=== PATIENT | male | born 1940 | race Caucasian/White ===

== ENCOUNTER 2019-09-30 05:55 | Day surgery (SDC) | payer MEDICARE, BC ==
[2019-09-22 13:05] LABS: BASOPHILS % (AUTO) 0.6 % (0-1); EOSINOPHILS # (AUTO) 0.2 X10'3 (0-0.9); EOSINOPHILS % (AUTO) 3.2 % (0-6); LYMPHOCYTES # (AUTO) 1.5 X10'3 (1.1-4.8); LYMPHOCYTES % (AUTO) 21.1 % (21-51); MEAN CORPUSCULAR HEMOGLOBIN 31.1 PG (27.0-31.0); MEAN CORPUSCULAR HGB CONC 33.6 g/dL (33.0-36.5); MEAN CORPUSCULAR VOLUME 92.4 FL (78-98); MEAN PLATELET VOLUME 8.3 FL (7.4-10.4); MONOCYTES # (AUTO) 0.7 X10'3 (0-0.9); MONOCYTES % (AUTO) 9.4 % (2-12); NEUTROPHILS # (AUTO) 4.7 X10'3 (1.8-7.7); NEUTROPHILS % (AUTO) 65.7 % (42-75); PRE OP HEMATOCRIT 41.2 % (42.0-52.0); PRE OP HEMOGLOBIN 13.8 g/dL (14.0-17.9); PRE OP PLATELET COUNT 218 X10'3 (140-440); RED BLOOD COUNT 4.46 X10'6 (4.70-6.10); RED CELL DISTRIBUTION WIDTH 14.3 % (11.5-14.5)
[2019-09-22 13:16] LABS: PRE OP PROTIME 10.5 SECONDS (9.0-12.0)
[2019-09-22 13:26] LABS: ALBUMIN 4.1 G/DL (3.4-5.0); ALBUMIN/GLOBULIN RATIO 1.1 (1.1-1.5); ALKALINE PHOSPHATASE 81 IU/L (46-116); BLOOD UREA NITROGEN 27 MG/DL (7-18); CALCIUM 9.3 MG/DL (8.5-10.1); CHLORIDE 107 MMOL/L (99-107); CREATININE 1.04 MG/DL (0.60-1.10); PRE OP ALT 28 U/L (30-65); PRE OP ANION GAP 8 (8-16); PRE OP AST 14 U/L (10-37); PRE OP BILIRUB, TOTAL 0.5 MG/DL (0.0-1.0); PRE OP GLUCOSE 104 MG/DL (70-104); PRE OP POTASSIUM 4.1 MMOL/L (3.4-5.1); PRE OP SODIUM 144 MMOL/L (135-145); TOTAL CARBON DIOXIDE 28.6 MMOL/L (24-32); eGFR 69 ML/MIN
[~2019-09-30] VITALS: Ht 167.6 cm; Wt 91.2 kg
[~2019-09-30 05:55] MED LIST: AMLO5TAB16 PO; AZIL80TA PO; DILT300C53 PO; HYDR12.55 PO; MINO10TA16 PO; cefazolin/dext.iso 2gm/100 ML IV ONE; famotidine 20mg tablet PO ONE; ringers solution, lacted 1,000 ML IV SCH
[2019-09-30 06:15] VITALS: BP 150/77
[2019-09-30] MEDS ORDERED: LIDOcaine 0.5% (5mg/ml) 50ml vial ONE (07:08)
[2019-09-30] MEDS ORDERED: meperidine/PF 25mg/ml syringe IV PRN ×3 (07:35)
[2019-09-30] MEDS ORDERED: proCHLORperazine 10 MG/2 ml inj IV PRN (07:35)
[2019-09-30] MEDS ORDERED: ringers solution, lacted 1,000 ML IV SCH (07:35)
[2019-09-30] MEDS ORDERED: ondansetron/PF 4mg/2ml inj IV PRN (07:35)
[2019-09-30] MEDS ORDERED: morphine 4 MG/ML inj SYRINge IV PRN ×2 (07:35)
[2019-09-30] MEDS ORDERED: BUPIVAcaine/PF 2.5mg/ml (0.25%) 10ml vial ONE (08:04)
[2019-09-30] MEDS ORDERED: fentaNYL/PF 50MCG/1 ML 2ML syringe ONE (08:13)
[2019-09-30] MEDS ORDERED: midazolam 2 mg/2 ml injection ONE (08:13)
[2019-09-30] MEDS ORDERED: propofol 10mg/ml 20ml vial IV ONE (08:14)
[2019-09-30 08:41] VITALS: BP 125/89
--- NOTE | 2019-09-30 08:41 | NUR ---
Received from OR via MIGEL , accompanied by Anesthesiologist JENNIFER and report given by Anesthesiolgist. RIGHT WRIST DRESSING IS CDI+ CAP REFILL.. DENIES PAIN. 20G PIV IN LEFT UE RUNNING LR AT 100 Addendum: 09/30/19 at 0856 by Juanito Franco RN, RN Amended: Links added.
[2019-09-30 08:51] VITALS: BP 136/63
[2019-09-30 09:01] VITALS: BP 132/61
--- NOTE | 2019-09-30 09:11 | NUR ---
ALL DC CRITERIA HAS BEEN MET. IV OUT WITHOUT C OMPLICATIONS. DENIES PAIN. RIGHT WRIST DRESSING IS CDI. OUT VIA WHEELCHAIR TO [place] WHERE HE WAS TAKEN HOME. ALL QUESTIONS ANSWERED ON DC PAPERWORK. VSS. Addendum: 09/30/19 at 0919 by Juanito Franco RN, RN Amended: Links added.
== END 2019-09-30 09:11 | disposition home or self-care (01) ==
LOC: PAS 05:55
PROVIDERS: ATTEND Orthopaedic Surgery Hand Surgery
DX: G56.01 Carpal tunnel syndrome, right upper limb (principal); I10 Essential (primary) hypertension; G62.9 Polyneuropathy, unspecified; F43.10 Post-traumatic stress disorder, unspecified; Z79.899 Other long term (current) drug therapy; Z98.890 Other specified postprocedural states; Z72.89 Other problems related to lifestyle; Z96.641 Presence of right artificial hip joint; Z96.652 Presence of left artificial knee joint; Z79.01 Long term (current) use of anticoagulants
CPT/HCPCS: 36415; 64721; 71046; 80053; 85025; 85610; 85730; 93005; J2001; J2250; J2704; J3010; J3490; A4215; J7120

== ENCOUNTER 2019-11-11 07:41 | Day surgery (SDC) | payer MEDICARE, BC ==
[2019-11-08 15:14] LABS: BASOPHILS % (AUTO) 0.5 % (0-1); EOSINOPHILS # (AUTO) 0.2 X10'3 (0-0.9); LYMPHOCYTES # (AUTO) 1.5 X10'3 (1.1-4.8); MEAN CORPUSCULAR HEMOGLOBIN 30.8 PG (27.0-31.0); MEAN CORPUSCULAR HGB CONC 33.9 g/dL (33.0-36.5); MEAN PLATELET VOLUME 8.6 FL (7.4-10.4); MONOCYTES # (AUTO) 0.9 X10'3 (0-0.9); MONOCYTES % (AUTO) 11.2 % (2-12); NEUTROPHILS # (AUTO) 5.2 X10'3 (1.8-7.7); NEUTROPHILS % (AUTO) 66.3 % (42-75); PRE OP HEMATOCRIT 40.7 % (42.0-52.0); PRE OP HEMOGLOBIN 13.8 g/dL (14.0-17.9); PRE OP PLATELET COUNT 233 X10'3 (140-440); RED BLOOD COUNT 4.47 X10'6 (4.70-6.10); RED CELL DISTRIBUTION WIDTH 14.1 % (11.5-14.5)
[2019-11-08 15:33] LABS: ALBUMIN 3.8 G/DL (3.4-5.0); ALBUMIN/GLOBULIN RATIO 1.2 (1.1-1.5); ALKALINE PHOSPHATASE 72 IU/L (46-116); BLOOD UREA NITROGEN 22 MG/DL (7-18); BUN/CREATININE RATIO 20.6 (5.4-32.0); CALCIUM 9.4 MG/DL (8.5-10.1); CHLORIDE 104 MMOL/L (99-107); CREATININE 1.07 MG/DL (0.60-1.10); PRE OP ALT 24 U/L (30-65); PRE OP ANION GAP 8 (8-16); PRE OP AST 18 U/L (10-37); PRE OP BILIRUB, TOTAL 0.4 MG/DL (0.0-1.0); PRE OP GLUCOSE 89 MG/DL (70-104); PRE OP POTASSIUM 4.1 MMOL/L (3.4-5.1); PRE OP SODIUM 139 MMOL/L (135-145); TOTAL CARBON DIOXIDE 27.3 MMOL/L (24-32); TOTAL PROTEIN 7.1 G/DL (6.4-8.2); eGFR 67 ML/MIN
[~2019-11-11] VITALS: Ht 167.6 cm; Wt 94.0 kg
[~2019-11-11 07:41] MED LIST changes: -cefazolin/dext.iso 2gm/100 ML IV ONE; +cefazolin/dext.iso 2gm/100ml 100 ML IV ONE; +famotidine 10mg tablet PO ONE; -famotidine 20mg tablet PO ONE
[2019-11-11 08:00] VITALS: BP 143/70
[2019-11-11] MEDS ORDERED: LIDOcaine 0.5% (5mg/ml) 50ml vial ONE (08:44)
[2019-11-11] MEDS ORDERED: ringers solution, lacted 1,000 ML IV SCH (08:58)
[2019-11-11] MEDS ORDERED: meperidine/PF 25mg/ml syringe IV PRN ×3 (09:00)
[2019-11-11] MEDS ORDERED: proCHLORperazine 10 MG/2 ml inj IV PRN (09:00)
[2019-11-11] MEDS ORDERED: morphine 4 MG/ML inj SYRINge IV PRN ×2 (09:00)
[2019-11-11] MEDS ORDERED: ondansetron/PF 4mg/2ml inj IV PRN (09:00)
[2019-11-11] MEDS ORDERED: BUPIVAcaine/PF 2.5mg/ml (0.25%) 10ml vial IJ ONE (09:58)
[2019-11-11] MEDS ORDERED: midazolam 2 mg/2 ml injection ONE (10:41)
[2019-11-11] MEDS ORDERED: fentaNYL/PF 50MCG/1 ML 2ML syringe ONE (10:41)
[2019-11-11] MEDS ORDERED: BUPIVAcaine/PF 2.5mg/ml (0.25%) 10ml vial ONE (10:53)
[2019-11-11] MEDS ORDERED: propofol inj 20 ML IV ONE (10:59)
[2019-11-11 11:15] VITALS: BP 121/78
--- NOTE | 2019-11-11 11:15 | NUR ---
ADMITTED TO PACU FROM OR ACCOMPANIED BY ANESTHESIA. INTIAL PHYSICAL ASSESSMENT DONE AND RECORDED. REPORT RECEIVED FROM ANESTHESIA.
[2019-11-11 11:25] VITALS: BP 118/80
[2019-11-11 11:35] VITALS: BP 117/78
[2019-11-11 11:45] VITALS: BP 112/74
[2019-11-11 11:55] VITALS: BP 116/70
--- NOTE | 2019-11-11 12:05 | NUR ---
DISCHARGE CRITERIA MET, DISCHARGE INSTRUCTIONS GIVEN, DEMONSTRATES VERBAL UNDERSTANDING. DISCHARGED HOME IN GOOD CONDITION.
== END 2019-11-11 12:05 | disposition home or self-care (01) ==
LOC: PAS 07:41
PROVIDERS: ATTEND Orthopaedic Surgery Hand Surgery
DX: G56.02 Carpal tunnel syndrome, left upper limb (principal); M19.90 Unspecified osteoarthritis, unspecified site; F43.10 Post-traumatic stress disorder, unspecified; Z96.641 Presence of right artificial hip joint; Z96.652 Presence of left artificial knee joint; Z79.899 Other long term (current) drug therapy
CPT/HCPCS: 36415; 64721; 80053; 82948; 85025; J2001; J2250; J2704; J3010; J3490; A4215; J7120

== ENCOUNTER 2020-06-18 11:48 | Outpatient (CLI) | payer MEDICARE, BC ==
[~2020-06-18 11:48] MED LIST changes: -AMLO5TAB16 PO; -cefazolin/dext.iso 2gm/100ml 100 ML IV ONE; -famotidine 10mg tablet PO ONE; -ringers solution, lacted 1,000 ML IV SCH
== END 2020-06-18 23:59 | disposition home or self-care (01) ==
LOC: RAD 11:48
PROVIDERS: ATTEND Internal Medicine Cardiovascular Disease
DX: I49.5 Sick sinus syndrome (principal)
CPT/HCPCS: 71046

== ENCOUNTER 2020-06-27 11:32 | Day surgery (SDC) | payer MEDICARE, BC ==
[2020-06-26 12:40] LABS: BASOPHILS # (AUTO) 0.1 X10'3 (0-0.2); BASOPHILS % (AUTO) 0.6 % (0-1); EOSINOPHILS # (AUTO) 0.2 X10'3 (0-0.9); EOSINOPHILS % (AUTO) 2.1 % (0-6); HEMATOCRIT 37.9 % (42.0-52.0); HEMOGLOBIN 12.5 g/dl (14.0-17.9); LYMPHOCYTES # (AUTO) 1.3 X10'3 (1.1-4.8); LYMPHOCYTES % (AUTO) 15.3 % (21-51); MEAN CORPUSCULAR HEMOGLOBIN 29.5 PG (27.0-31.0); MEAN CORPUSCULAR HGB CONC 32.9 g/dL (33.0-36.5); MEAN CORPUSCULAR VOLUME 89.6 FL (78-98); MEAN PLATELET VOLUME 9.1 FL (7.4-10.4); MONOCYTES # (AUTO) 0.9 X10'3 (0-0.9); MONOCYTES % (AUTO) 10.1 % (2-12); NEUTROPHILS # (AUTO) 6.3 X10'3 (1.8-7.7); NEUTROPHILS % (AUTO) 71.9 % (42-75); PLATELET COUNT 202 X10'3 (140-440); RED BLOOD COUNT 4.23 X10'6 (4.70-6.10); RED CELL DISTRIBUTION WIDTH 15.1 % (11.5-14.5); WHITE BLOOD COUNT 8.7 X10'3 (4.5-11.0)
[2020-06-26 12:53] LABS: ALBUMIN 3.6 G/DL (3.4-5.0); ANION GAP 6 (8-16); BLOOD UREA NITROGEN 40 MG/DL (7-18); BUN/CREATININE RATIO 28.8 (5.4-32.0); CALCIUM 9.1 MG/DL (8.5-10.1); CHLORIDE 103 MMOL/L (99-107); CREATININE 1.39 MG/DL (0.60-1.10); GLUCOSE 115 MG/DL (70-104); MAGNESIUM 2.1 MG/DL (1.5-2.4); POTASSIUM 4.3 MMOL/L (3.5-5.1); SODIUM 137 MMOL/L (135-145); TOTAL CARBON DIOXIDE 28.3 MMOL/L (24-32); eGFR 49 ML/MIN
[2020-06-26 12:55] LABS: PARTIAL THROMBOPLASTIN TIME 29 SECONDS (22-32)
[~2020-06-27] VITALS: Ht 167.6 cm; Wt 93.8 kg
[2020-06-27] VITALS (8 sets, daily range): BP systolic 93–158; BP diastolic 44–76
[2020-06-27] MEDS ORDERED: ceFAZolin 2gm in dextrose, iso 50 ML IV ONE (11:55)
[2020-06-27] MEDS ORDERED: normal saline 1000ml 1,000 ML IV SCH ×2 (11:55→17:55)
[2020-06-27] MEDS ORDERED: AMLO2.5T2 PO (12:44)
[2020-06-27] MEDS ORDERED: fentaNYL/PF 50MCG/1 ML 2ML syringe ONE ×2 (15:32→16:19)
[2020-06-27] MEDS ORDERED: LIDOcaine 1% W/epiNEPHrine 1:100,000 20ml vial ONE (15:32)
[2020-06-27] MEDS ORDERED: midazolam 2 mg/2 ml injection ONE ×2 (15:32→16:19)
[2020-06-27] MEDS ORDERED: ceFAZolin/D5W- 1GM premix 50 ML IV ONE (15:35)
[2020-06-27] MEDS ORDERED: ceFAZolin 1000mg inj ONE (16:02)
[2020-06-27] MEDS ORDERED: proCHLORperazine 10 MG/2 ml inj ONE (16:16)
[2020-06-27] MEDS ORDERED: HYDROmorphone 1 mg/ml syringe ONE ×2 (16:23→16:40)
[2020-06-27] MEDS ORDERED: HYDROcodone/acetaminophen 10/325mg tab PO PRN (18:00)
[2020-06-27] MEDS ORDERED: HYDROcodone/acetaminophen 5mg/325mg tablet PO PRN (18:00)
[2020-06-27] MEDS ORDERED: vancomycin/NS 1 GM ADD-VANTAGE 250 ML IV ONE (18:30)
== END 2020-06-27 20:30 | disposition home or self-care (01) ==
LOC: SSTAY O 11:32
PROVIDERS: ATTEND Internal Medicine Cardiovascular Disease
DX: T82.120A Displacement of cardiac electrode, initial encounter (principal); I44.2 Atrioventricular block, complete; I10 Essential (primary) hypertension; F32.9 Major depressive disorder, single episode, unspecified; E53.8 Deficiency of other specified B group vitamins; Z79.899 Other long term (current) drug therapy; Z96.641 Presence of right artificial hip joint; Z79.01 Long term (current) use of anticoagulants; Z96.652 Presence of left artificial knee joint; Y83.8 Other surgical procedures as the cause of abnormal reaction of the patient, or of later complication, without mention of misadventure at the time of the procedure; Y92.89 Other specified places as the place of occurrence of the external cause
CPT/HCPCS: 33215; 36415; 80048; 83735; 85025; 85610; 85730; 93005; 99152; 99153; J0690; J0780; J1170; J2250; J3010; A4620

== ENCOUNTER 2021-07-29 07:50 | Day surgery (SDC) | payer MEDICARE, BC ==
[~2021-07-29] VITALS: Ht 167.6 cm; Wt 98.4 kg
[~2021-07-29 07:50] MED LIST changes: +AMLO2.5T2 PO
[2021-07-29] MEDS ORDERED: PREG150C46 PO (08:15)
[2021-07-29] MEDS ORDERED: Vitamin B12 PO (08:15)
[2021-07-29] MEDS ORDERED: DILT360C29 PO (08:15)
[2021-07-29 08:30] VITALS: BP 163/72
[2021-07-29 10:50] VITALS: BP 141/75
[2021-07-29 11:05] VITALS: BP 167/71
[2021-07-29 11:20] VITALS: BP 170/71
[2021-07-29 11:35] VITALS: BP 164/80
[2021-07-29 11:35] LABS: GLUCOSE,CSF 77 MG/DL (40-75); TOTAL PROTEIN,CSF 78 MG/DL (30-60)
[2021-07-29 12:05] VITALS: BP 170/68
[2021-07-29 12:12] LABS: APPEARANCE,CSF CLEAR; CSF RBC 441 /CU MM (0); CSF SUPERNATANT COLOR COLORLESS; CSF VOLUME 8.2 ML; CSF WBC CT 0 /CU MM (0-5); TUBE# COUNTED 4
[2021-07-30 10:43] LABS: IMMUNOGLOBULIN G, QN, SERUM 921 mg/dL (603-1613)
[2021-07-31 17:24] LABS: IMMUNOGLOBULIN G, QN CSF 3.9 mg/dL (0.0-10.3)
[2021-08-02 17:36] LABS: LYME IGG P23 AB Absent (.); LYME IGG P28 AB Absent (.); LYME IGG P30 AB Absent (.); LYME IGG P41 AB Absent (.); LYME IGG P45 AB Absent (.); LYME IGG P58 AB Absent (.); LYME IGG P66 AB Absent (.); LYME IGG P93 AB Absent (.); LYME IGG WB INTERP Negative (.); LYME IGM P23 AB Absent (.); LYME IGM P39 AB Absent (.); LYME IGM P41 AB Absent (.); LYME IGM WB INTERP Negative (.)
== END 2021-07-29 12:20 | disposition home or self-care (01) ==
LOC: SSTAY O 07:50
PROVIDERS: ATTEND Psychiatry & Neurology Neurology
DX: R20.2 Paresthesia of skin (principal); I10 Essential (primary) hypertension; F32.9 Major depressive disorder, single episode, unspecified; E53.8 Deficiency of other specified B group vitamins; G62.9 Polyneuropathy, unspecified; Z79.899 Other long term (current) drug therapy; Z96.651 Presence of right artificial knee joint
CPT/HCPCS: 62328; 77003; 82040; 82042; 82164; 82784; 82945; 83916; 84157; 86617; 88108; 89051

== ENCOUNTER 2021-12-29 13:04 | Inpatient (IN) | payer MEDICARE, BC ==
[~2021-12-29] VITALS: Ht 167.6 cm; Wt 105.6 kg
[~2021-12-29 13:04] MED LIST changes: -AMLO2.5T2 PO; -DILT300C53 PO; +DILT360C29 PO; +PREG150C46 PO; +Vitamin B12 PO
[2021-12-29] MEDS ORDERED: normal saline 1000ML IV soln IVB ONE (14:15)
[2021-12-29 14:42] LABS: BASOPHILS # (AUTO) 0.3 X10'3 (0-0.2); BASOPHILS % (AUTO) 0.9 % (0-1); EOSINOPHILS % (AUTO) 0 % (0-6); HEMATOCRIT 40.7 % (42.0-52.0); HEMOGLOBIN 13.3 g/dl (14.0-17.9); LYMPHOCYTES # (AUTO) 0.7 X10'3 (1.1-4.8); LYMPHOCYTES % (AUTO) 2.5 % (21-51); MEAN CORPUSCULAR HEMOGLOBIN 29.8 PG (27.0-31.0); MEAN CORPUSCULAR HGB CONC 32.8 g/dL (33.0-36.5); MEAN CORPUSCULAR VOLUME 90.9 FL (78-98); MEAN PLATELET VOLUME 9.5 FL (7.4-10.4); MONOCYTES # (AUTO) 2.9 X10'3 (0-0.9); MONOCYTES % (AUTO) 10.6 % (2-12); NEUTROPHILS # (AUTO) 23.7 X10'3 (1.8-7.7); PLATELET COUNT 228 X10'3 (140-440); RED BLOOD COUNT 4.48 X10'6 (4.70-6.10); RED CELL DISTRIBUTION WIDTH 15.1 % (11.5-14.5)
[2021-12-29 14:50] LABS: WHITE BLOOD COUNT 27.6 X10'3 (4.5-11.0)
[2021-12-29 14:54] LABS: APTT 32 SECONDS (22-32)
[2021-12-29 14:57] LABS: ALANINE AMINOTRANSFERASE 40 U/L (12-78); ALBUMIN 2.8 G/DL (3.4-5.0); ALBUMIN/GLOBULIN RATIO 0.6 (1.1-1.5); ALKALINE PHOSPHATASE 111 IU/L (46-116); ANION GAP 7 (8-16); ASPARTATE AMINO TRANSFERASE 73 U/L (10-37); BILIRUBIN,TOTAL 0.5 MG/DL (0.1-1.0); BLOOD UREA NITROGEN 103 MG/DL (7-18); BUN/CREATININE RATIO 20.9 (5.4-32.0); CALCIUM 8.9 MG/DL (8.5-10.1); CHLORIDE 100 MMOL/L (99-107); CREATININE 4.92 MG/DL (0.60-1.10); GLUCOSE 177 MG/DL (70-104); POTASSIUM 4.7 MMOL/L (3.5-5.1); SODIUM 135 MMOL/L (135-145); TOTAL CARBON DIOXIDE 28.3 MMOL/L (24-32); TOTAL PROTEIN 7.5 G/DL (6.4-8.2); eGFR 11 ML/MIN
[2021-12-29 15:03] LABS: ANISOCYTOSIS FEW; PLATELET ESTIMATE NORMAL; TOTAL CELLS COUNTED 100; TOXIC GRANULATION 1+
[2021-12-29 15:05] LABS: BURR CELLS 2+
[2021-12-29 15:06] LABS: LIPASE 358 U/L (73-393)
[2021-12-29] MEDS: normal saline 1000ml 1,000 ML IV SCH (17:00)
[2021-12-29] MEDS ORDERED: azithromycin/NS 500mg/250ml 250 ML IV ONE (17:00)
[2021-12-29] MEDS ORDERED: HYDROmorphone/PF 0.2 MG/ML SYRINGE IV PRN (17:00)
[2021-12-29] MEDS ORDERED: PERFLUTREN PROTEIN-A MICROSPHR (Optison) 0.22 MG/ML 3ML VIAL IV ONE (17:00)
[2021-12-29] MEDS ORDERED: potassium Cl 20 mEq SR tablet PO PRN ×2 (17:00)
[2021-12-29] MEDS ORDERED: magnesium 4gm in 100ml NS 100 ML IV PRN (17:00)
[2021-12-29] MEDS ORDERED: PERFLUTREN PROTEIN-A MICROSPHR (Optison) 0.22 MG/ML 3ML VIAL IV PRN (17:00)
[2021-12-29] MEDS ORDERED: HYDROcodone/acetaminophen 10/325mg tab PO PRN (17:00)
[2021-12-29] MEDS ORDERED: HYDROmorphone inj. 0.5 MG/0.5 ML DISP.SYRIN IV PRN (17:00)
[2021-12-29] MEDS ORDERED: acetaminophen 325mg tablet PO PRN ×2 (17:00)
[2021-12-29] MEDS: CefTRIAXone/D5W-Rocephin 1gm 50 ML IV SCH (17:00)
[2021-12-29] MEDS ORDERED: HYDROcodone/acetaminophen 5mg/325mg tablet PO PRN (17:00)
[2021-12-29] MEDS ORDERED: magnesium Cl slow-release 64mg tablet PO PRN (17:00)
[2021-12-29] MEDS ORDERED: potassium CL 10mEq/100ml bag 100 ML IV PRN (17:00)
[2021-12-29] MEDS ORDERED: mag hydrox/Alum hydrox/simeth 30ml oral suspension PO PRN (17:00)
[2021-12-29] MEDS ORDERED: magnesium hydroxide 30ml (MOM) UD suspension PO PRN (17:00)
[2021-12-29] MEDS ORDERED: bisacodyl 10mg suppository rectal RC PRN (17:00)
[2021-12-29] MEDS ORDERED: ondansetron 4mg rapidly disintigrating tab PO PRN (17:00)
[2021-12-29] MEDS ORDERED: ondansetron/PF 4mg/2ml inj IV PRN (17:00)
[2021-12-29] MEDS ORDERED: magnesium 2GM in 50ml NS 50 ML IV PRN (17:00)
[2021-12-29] MEDS ORDERED: LIDOcaine 2% 10ml TOPICAL JELLY (Urojet) TP ONE (17:30)
[2021-12-29 17:43] LABS: MAGNESIUM 2.5 MG/DL (1.5-2.4)
[2021-12-29] MEDS: K and/or MAG REPLACEMENT MC SCH (20:00)
[2021-12-29] MEDS: docusate sod 100mg capsule PO SCH (20:00)
[2021-12-29 20:26] LABS: CLARITY,URINE SLIGHTLY CLOUDY (Clear); COLOR,URINE YELLOW (Yellow); GLUCOSE, URINE NEGATIVE (Neg); KETONES,URINE TRACE mg/dl (Neg); LEUKOCYTE ESTERASE ,URINE NEGATIVE (Neg); NITRITES, URINE NEGATIVE (Neg); OCCULT BLOOD,URINE MODERATE (Neg); PROTEIN,URINE 30 mg/dl (Neg); UROBILINOGEN,URINE 0.2 E.U/dL (0.2-1.0)
[2021-12-29 20:33] LABS: UA COLLECTION TYPE FOLEY CATH
[2021-12-29 20:34] LABS: AMORPHOUS URATES 1+; BACTERIA,URINE FEW /HPF (Neg); RBC,URINE 0-2 /HPF (0-2); SQUAMOUS EPITHELIAL CELL,UR FEW /LPF (FEW); WBC,URINE NONE SEEN /HPF (0-4)
[2021-12-29 23:45] VITALS: BP 110/86
[2021-12-30 02:00] VITALS: BP 113/73
[2021-12-30] MEDS: normal saline 1000ml 1,000 ML IV SCH ×2 (03:17→13:33)
[2021-12-30 06:00] VITALS: BP 95/46
[2021-12-30 06:01] LABS: BASOPHILS % (AUTO) 0.2 % (0-1); EOSINOPHILS # (AUTO) 0.1 X10'3 (0-0.9); EOSINOPHILS % (AUTO) 0.2 % (0-6); HEMATOCRIT 38.8 % (42.0-52.0); HEMOGLOBIN 12.5 g/dl (14.0-17.9); LYMPHOCYTES # (AUTO) 0.7 X10'3 (1.1-4.8); LYMPHOCYTES % (AUTO) 2.8 % (21-51); MEAN CORPUSCULAR HEMOGLOBIN 30.1 PG (27.0-31.0); MEAN CORPUSCULAR HGB CONC 32.1 g/dL (33.0-36.5); MEAN CORPUSCULAR VOLUME 93.8 FL (78-98); MONOCYTES # (AUTO) 2.3 X10'3 (0-0.9); MONOCYTES % (AUTO) 9.3 % (2-12); NEUTROPHILS # (AUTO) 21.3 X10'3 (1.8-7.7); NEUTROPHILS % (AUTO) 87.5 % (42-75); PLATELET COUNT 229 X10'3 (140-440); RED BLOOD COUNT 4.14 X10'6 (4.70-6.10); WHITE BLOOD COUNT 24.4 X10'3 (4.5-11.0)
[2021-12-30 06:19] LABS: ALANINE AMINOTRANSFERASE 46 U/L (12-78); ALBUMIN 2.4 G/DL (3.4-5.0); ALBUMIN/GLOBULIN RATIO 0.7 (1.1-1.5); ALKALINE PHOSPHATASE 107 IU/L (46-116); ANION GAP 11 (8-16); ASPARTATE AMINO TRANSFERASE 92 U/L (10-37); BILIRUBIN,TOTAL 0.3 MG/DL (0.1-1.0); BLOOD UREA NITROGEN 110 MG/DL (7-18); BUN/CREATININE RATIO 20.5 (5.4-32.0); CALCIUM 8.3 MG/DL (8.5-10.1); CHLORIDE 102 MMOL/L (99-107); CHOL/HDL RATIO 4.3 (0.00-4.99); CHOLESTEROL 112 MG/DL (0-200); CREATININE 5.36 MG/DL (0.60-1.10); GLUCOSE 114 MG/DL (70-104); HDL CHOLESTEROL 26 MG/DL (35-60); LDL CHOLESTEROL 52 MG/DL (50-100); MAGNESIUM 2.6 MG/DL (1.5-2.4); POTASSIUM 5.1 MMOL/L (3.5-5.1); SODIUM 138 MMOL/L (135-145); TOTAL CARBON DIOXIDE 25.1 MMOL/L (24-32); TOTAL PROTEIN 5.7 G/DL (6.4-8.2); TRIGLYCERIDES 90 MG/DL (20-135); eGFR 10 ML/MIN
[2021-12-30] MEDS ORDERED: azithromycin/NS 500mg/250ml 250 ML IV SCH (08:00)
[2021-12-30] MEDS: K and/or MAG REPLACEMENT MC SCH (08:00)
[2021-12-30] MEDS: docusate sod 100mg capsule PO SCH ×2 (08:00→20:48)
[2021-12-30] MEDS: nystatin 15 GM powder TP SCH ×2 (08:31→20:48)
--- NOTE | 2021-12-30 09:12 | NUR ---
Noted current ht in EMR 129in. D/w RN getting updated ht. Addendum: 12/30/21 at [address] Yevgeniy Peña RD Amended: Links added.
[2021-12-30 09:25] LABS: ANISOCYTOSIS FEW; BURR CELLS 2+; PLATELET ESTIMATE NORMAL; TOTAL CELLS COUNTED 100; TOXIC GRANULATION 1+
[2021-12-30 09:26] LABS: LARGE PLATELETS FEW
[2021-12-30] MEDS: CefTRIAXone/D5W-Rocephin 1gm 50 ML IV SCH (09:39)
[2021-12-30 11:00] VITALS: BP 113/45
[2021-12-30 15:00] VITALS: BP 115/52
[2021-12-30] MEDS ORDERED: VANCOMYCIN 1GM/200ML IVPB 200 ML IV PRN (16:25)
[2021-12-30] MEDS: sodium chloride 0.45% 1,000 ML IV SCH (16:37)
[2021-12-30] MEDS ORDERED: vancomycin 1,750 MG in NS 350ml IV soln IV ONE (17:20)
[2021-12-30 18:00] VITALS: BP 126/50
--- NOTE | 2021-12-30 18:15 | NUR ---
Problems reprioritized. Patient report given, questions answered & plan of care reviewed with Clare SANCHEZ.
[2021-12-30 18:29] LABS: ALBUMIN 2.4 G/DL (3.4-5.0); ANION GAP 10 (8-16); BLOOD UREA NITROGEN 122 MG/DL (7-18); BUN/CREATININE RATIO 21.6 (5.4-32.0); CHLORIDE 104 MMOL/L (99-107); CREATININE 5.65 MG/DL (0.60-1.10); GLUCOSE 149 MG/DL (70-104); POTASSIUM 5.8 MMOL/L (3.5-5.1); SODIUM 139 MMOL/L (135-145); TOTAL CARBON DIOXIDE 25.2 MMOL/L (24-32); eGFR 10 ML/MIN
[2021-12-30] MEDS ORDERED: albuterol 2.5 MG/3 ML nebule CONTNEB STA (18:53)
[2021-12-30] MEDS: lactobacillus rhamnosus 10,000 MMU CELLS/CAPSULE PO SCH (20:48)
[2021-12-30] MEDS: SODIUM ZIRCONIUM CYCLOSILICATE 10 GM POWD.PACK PO SCH ×2 (20:48→20:49)
[2021-12-30 22:00] VITALS: BP 117/48
--- NOTE | 2021-12-30 22:00 | NUR ---
PM and Elkins care done. Pt had a bowel movement; dressing to sacral changed. Pt denied pain or any other discomfort.
[2021-12-31] VITALS (8 sets, daily range): BP systolic 92–118; BP diastolic 38–52
[2021-12-31] MEDS: piperacillin/tazo 3.375gm/50ml 50 ML IV SCH ×3 (00:24→19:55)
[2021-12-31] MEDS: sodium chloride 0.45% 1,000 ML IV SCH ×4 (00:34→23:00)
[2021-12-31] MEDS: VANCOMYCIN LEVEL IV SCH (03:42)
[2021-12-31 04:46] LABS: ALANINE AMINOTRANSFERASE 49 U/L (12-78); ALBUMIN 2.2 G/DL (3.4-5.0); ALBUMIN/GLOBULIN RATIO 0.7 (1.1-1.5); ALKALINE PHOSPHATASE 104 IU/L (46-116); ANION GAP 13 (8-16); ASPARTATE AMINO TRANSFERASE 70 U/L (10-37); BILIRUBIN,TOTAL 0.3 MG/DL (0.1-1.0); BLOOD UREA NITROGEN 131 MG/DL (7-18); BUN/CREATININE RATIO 22.8 (5.4-32.0); CALCIUM 7.8 MG/DL (8.5-10.1); CHLORIDE 102 MMOL/L (99-107); CREATININE 5.75 MG/DL (0.60-1.10); GLUCOSE 147 MG/DL (70-104); MAGNESIUM 2.2 MG/DL (1.5-2.4); POTASSIUM 5.5 MMOL/L (3.5-5.1); SODIUM 138 MMOL/L (135-145); TOTAL CARBON DIOXIDE 22.7 MMOL/L (24-32); TOTAL PROTEIN 5.3 G/DL (6.4-8.2); VANCOMYCIN,RANDOM 19.2 UG/ML; eGFR 10 ML/MIN
[2021-12-31 05:34] LABS: BASOPHILS % (AUTO) 0.1 % (0-1); EOSINOPHILS % (AUTO) 0.1 % (0-6); HEMATOCRIT 35.6 % (42.0-52.0); HEMOGLOBIN 11.4 g/dl (14.0-17.9); LYMPHOCYTES # (AUTO) 0.5 X10'3 (1.1-4.8); LYMPHOCYTES % (AUTO) 2.7 % (21-51); MEAN CORPUSCULAR HEMOGLOBIN 29.7 PG (27.0-31.0); MEAN CORPUSCULAR HGB CONC 31.9 g/dL (33.0-36.5); MEAN CORPUSCULAR VOLUME 93.2 FL (78-98); MEAN PLATELET VOLUME 9.8 FL (7.4-10.4); MONOCYTES # (AUTO) 1.6 X10'3 (0-0.9); MONOCYTES % (AUTO) 8.2 % (2-12); NEUTROPHILS # (AUTO) 17.4 X10'3 (1.8-7.7); NEUTROPHILS % (AUTO) 88.9 % (42-75); PLATELET COUNT 198 X10'3 (140-440); RED BLOOD COUNT 3.82 X10'6 (4.70-6.10); RED CELL DISTRIBUTION WIDTH 15.8 % (11.5-14.5); WHITE BLOOD COUNT 19.5 X10'3 (4.5-11.0)
[2021-12-31] MEDS: docusate sod 100mg capsule PO SCH ×2 (08:00→19:56)
[2021-12-31] MEDS: lactobacillus rhamnosus 10,000 MMU CELLS/CAPSULE PO SCH ×2 (08:19→19:56)
[2021-12-31] MEDS: nystatin 15 GM powder TP SCH ×2 (08:23→19:56)
[2021-12-31] MEDS: SODIUM ZIRCONIUM CYCLOSILICATE 10 GM POWD.PACK PO SCH ×2 (08:26→13:09)
--- NOTE | 2021-12-31 11:01 | NUR ---
Initial: Pt admitted w/ Sepsis, SHANE w/ CKD, and encephalopathy per EMR. Pt currently on Heart Healthy diet w/ low PO intake, avg 36% x 3 meals though is documented to be A&O x 1 and needs feeder. 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 Pt could benefit from Devyn smoothies BID at this time to assist w/ wound healing. Will monitor further PO trends before additional ONS. Per Distributing Clerk, pt may need HD for worsening SHANE, has baseline CKD III. LBM 12/30 receiving routine colace, though pt may refuse it. Will continue to monitor. Recs: 1. Liberalize to Regular diet given no significant cardiac hx 2. Devyn Smoothies BIDBD; pending MD verification 3. Monitor need for additional ONS 4. Bowel care per rx 5. Weekly wts Addendum: 12/31/21 at [address]iy Peña RD Amended: Links added.
--- NOTE | 2021-12-31 16:42 | NUR ---
PAGER ID: [phone] MESSAGE: [id number] [place]- Wound culture swab sent to katarina. Elizabeth JENKINS
[2021-12-31 17:08] LABS: ALBUMIN 2.2 G/DL (3.4-5.0); ANION GAP 9 (8-16); BLOOD UREA NITROGEN 148 MG/DL (7-18); BUN/CREATININE RATIO 24.4 (5.4-32.0); CALCIUM 7.9 MG/DL (8.5-10.1); CHLORIDE 103 MMOL/L (99-107); CREATININE 6.06 MG/DL (0.60-1.10); GLUCOSE 165 MG/DL (70-104); PHOSPHORUS 8.9 MG/DL (2.3-4.5); SODIUM 136 MMOL/L (135-145); TOTAL CARBON DIOXIDE 24.2 MMOL/L (24-32); eGFR 9 ML/MIN
[2021-12-31 17:14] LABS: POTASSIUM 6.2 MMOL/L (3.5-5.1)
--- NOTE | 2021-12-31 17:19 | NUR ---
PAGER ID: [phone] MESSAGE: [id number] 6.2. Elizabeth 5554
[2021-12-31] MEDS ORDERED: sodium polystyrene sulfonate 15gm/60ml oral suspension PO ONE (17:25)
[2021-12-31] MEDS ORDERED: sodium bicarbonate (8.4%) inj. 50 MEQ in dextrose 5%-water 1,000 ML IV SCH (17:25)
[2021-12-31] MEDS ORDERED: calcium gluconate inj. 1 GM in normal saline 100ml IV soln 100 ML IV ONE (17:25)
[2021-12-31] MEDS ORDERED: albuterol 2.5 MG/3 ML nebule CONTNEB STA (17:25)
[2021-12-31] MEDS: JUVEN Smoothie Arginine/Glut./Ca2+Bmb (Juven 19.3pkt) 240ml cup PO SCH (17:30)
--- NOTE | 2021-12-31 17:45 | NUR ---
Informed Dr. Lira of BP 92/38 HR 80s. Stat Lasix order changed from 80mg to 20mg.
[2021-12-31] MEDS ORDERED: sodium bicarbonate (8.4%) 1 mEq/ml syringe IV ONE (17:50)
[2021-12-31] MEDS: CALCIUM GLUC 1gm/50ml NACL,iso 100 ML IV ONE ×3 (17:55→19:31)
[2021-12-31] MEDS: furosemide 40mg/4ml inj IV STA ×2 (17:57→18:12)
[2021-12-31] MEDS ORDERED: furosemide 20 MG/2 ML vial IV STA (18:09)
--- NOTE | 2021-12-31 18:10 | NUR ---
Problems reprioritized. Patient report given, questions answered & plan of care reviewed with Clare SANCHEZ.
[2021-12-31] MEDS ORDERED: sodium bicarbonate (8.4%) inj. 1 MEQ/ML ML IV ONE (19:15)
--- NOTE | 2021-12-31 22:31 | NUR ---
Patient in room PCU 3026 to be transferred to ICU 2042 B. I have received report from DANIEL Sparks and had the opportunity to ask questions.
[2021-12-31 22:33] LABS: BASOPHILS % (AUTO) 0.2 % (0-1); EOSINOPHILS % (AUTO) 0.2 % (0-6); HEMOGLOBIN 10.9 g/dl (14.0-17.9); LYMPHOCYTES # (AUTO) 0.5 X10'3 (1.1-4.8); LYMPHOCYTES % (AUTO) 2.7 % (21-51); MEAN CORPUSCULAR HEMOGLOBIN 29.9 PG (27.0-31.0); MEAN CORPUSCULAR VOLUME 93.5 FL (78-98); MEAN PLATELET VOLUME 9.4 FL (7.4-10.4); MONOCYTES # (AUTO) 1.4 X10'3 (0-0.9); MONOCYTES % (AUTO) 7.3 % (2-12); NEUTROPHILS # (AUTO) 16.7 X10'3 (1.8-7.7); NEUTROPHILS % (AUTO) 89.6 % (42-75); PLATELET COUNT 202 X10'3 (140-440); RED BLOOD COUNT 3.63 X10'6 (4.70-6.10); RED CELL DISTRIBUTION WIDTH 16.1 % (11.5-14.5); WHITE BLOOD COUNT 18.6 X10'3 (4.5-11.0)
[2021-12-31 23:00] LABS: ALANINE AMINOTRANSFERASE 45 U/L (12-78); ALBUMIN 2.1 G/DL (3.4-5.0); ALBUMIN/GLOBULIN RATIO 0.7 (1.1-1.5); ALKALINE PHOSPHATASE 98 IU/L (46-116); ANION GAP 10 (8-16); ASPARTATE AMINO TRANSFERASE 40 U/L (10-37); BILIRUBIN,TOTAL 0.3 MG/DL (0.1-1.0); BLOOD UREA NITROGEN 147 MG/DL (7-18); BUN/CREATININE RATIO 23.9 (5.4-32.0); CHLORIDE 102 MMOL/L (99-107); CREATININE 6.15 MG/DL (0.60-1.10); GLUCOSE 139 MG/DL (70-104); POTASSIUM 5.6 MMOL/L (3.5-5.1); SODIUM 136 MMOL/L (135-145); TOTAL CARBON DIOXIDE 23.9 MMOL/L (24-32); eGFR 9 ML/MIN
[2021-12-31 23:12] LABS: ANISOCYTOSIS 1+; BANDS% (MANUAL) 17.3 % (0-10); LYMPHOCYTES % (MANUAL) 2.7 % (21-51); METAMYLEOCYTES% (MANUAL) 0.7 % (0-0); MONOCYTES % (MANUAL) 3.3 % (2-12); MYELOCYTES % (MANUAL) 0.7 % (0-0); NEUTROPHILS % (MANUAL) 75.3 % (42-75); PLATELET ESTIMATE NORMAL; TOTAL CELLS COUNTED 150
[2021-12-31 23:13] LABS: BURR CELLS FEW; POLYCHROMASIA FEW
[2021-12-31 23:16] LABS: ABG BASE EXCESS -6.9 mmol/L (-2.0-2.0); ABG HCO3 23.4 mmol/L (22.0-26.0); ABG OXYGEN SATURATION 95.7 % (94-97); ABG PCO2 (T) 72.5 mmHg (35.0-48.0); ABG PO2 (T) 81.4 mmHg (75.0-100.0); ALLEN'S TEST POSITIVE; FCOHb 0.7 % (0.0-3.9); FMetHb 0.5 % (0.0-1.5); FO2Hb 94.6 % (94-97); PATIENT TEMPERATURE 36.7; TOTAL HEMOGLOBIN 11.8 G/dl (14.0-18.0)
--- NOTE | 2021-12-31 23:33 | NUR ---
Pt arrived on unit at 2240 via bed with RN and tech in attendance. Patient moved over to ICU bed via slider board. Patient placed bus monitor showing sinus rhythm to paced rhythm at a rate in the 70's. Oxygen via nasal cannula at 3 lpm with Oxygen saturation 93%. Respiratory rate 20. Saliva suctioned from mouth. IV access 22 ga to right chest, 18 ga to left A/C. 1/2 NS infusing at rate of 100 ml/hr. Zosyn infusing per MD order. Patient is responsive to name, A&Ox1. Patient will not open his eyes or follow commands. With every touch patient states "ouch!" Patient is resistant to care and physically becomes rigid with patient care activities. Complete bed bath, skin assessment: large open wound to sacrum and left buttock, purple/ black discoloration of skin. New hydrophyllic dressing applied. Patient with multiple small circular open wounds to posterior of lower extremities, excoriation noted to groin area. Patient had a bowel movement, large amount of soft dark brown stool. Marshall catheter in place with 33ml of dark brown urine present, marshall cath care was completed. SCD's placed on patient. STAT chest x-ray, ABG and labs completed per MD orders. RT back with ABG results, Per Dr. Caputo patient started on BiPAP.
[2022-01-01] VITALS (25 sets, daily range): BP systolic 60–193; BP diastolic 26–81
[2022-01-01] MEDS ORDERED: sodium bicarbonate (8.4%) 1 mEq/ml syringe IV ONE
[2022-01-01] MEDS ORDERED: albuterol 2.5 MG/3 ML nebule NEB ONE
[2022-01-01 00:21] LABS: ABG BASE EXCESS -7.9 mmol/L (-2.0-2.0); ABG OXYGEN SATURATION 96.6 % (94-97); ABG PO2 (T) 89.3 mmHg (75.0-100.0); ALLEN'S TEST POSITIVE; FCOHb 0.6 % (0.0-3.9); FMetHb 0.5 % (0.0-1.5); FO2Hb 95.5 % (94-97); PATIENT TEMPERATURE 36.7; RESPIRATORY RATE 16 b/min; TOTAL HEMOGLOBIN 11.7 G/dl (14.0-18.0)
--- NOTE | 2022-01-01 01:08 | NUR ---
Phone call with Dr. Conteh re: repeat ABG after being on BiPap, RT increased settings to IPAP 20 EPAP 8 with a noticeable decrease in MAP to the 50's. Per Dr. Conteh place patient back to IPAP18 EPAP 5. She would like to avoid placing patient on any pressors at this time. Clarified the hyperkalcemia orders: MD wants Sodium Bicarb, Albuterol as ordered, Lokelma if he is able to wake up and swallow safely, if not okay to wait on the Lokelma for the morning. No additional orders at this time.
[2022-01-01] MEDS: zinc oxide ointment 30gm tube TP SCH ×3 (02:35→20:00)
[2022-01-01] MEDS: VANCOMYCIN LEVEL IV SCH (03:00)
[2022-01-01] MEDS ORDERED: NORepinephrine 8mg/ 250ml NS 250 ML IV ONE (03:57)
--- NOTE | 2022-01-01 04:00 | NUR ---
rounds with Dr. Hinton, Patients MAP decreased to the 40's Levophed started. Patient obtunded with response to deep painful stimuli. BiPap still in place. Dr. Hinton would like charger operator helper to call Dr. Caputo, as Dr. Caputo is aware of this patients condition.
[2022-01-01 04:15] LABS: ABG BASE EXCESS -4.2 mmol/L (-2.0-2.0); ABG HCO3 25.2 mmol/L (22.0-26.0); ABG OXYGEN SATURATION 95.8 % (94-97); ABG PCO2 (T) 70.2 mmHg (35.0-48.0); ABG PO2 (T) 78.2 mmHg (75.0-100.0); ALLEN'S TEST POSITIVE; FCOHb 0.9 % (0.0-3.9); FMetHb 0.1 % (0.0-1.5); FO2Hb 94.8 % (94-97); PATIENT TEMPERATURE 36.7; RESPIRATORY RATE 22 b/min; TOTAL HEMOGLOBIN 10.8 G/dl (14.0-18.0)
[2022-01-01 04:17] LABS: BASOPHILS # (AUTO) 0.1 X10'3 (0-0.2); BASOPHILS % (AUTO) 0.4 % (0-1); EOSINOPHILS % (AUTO) 0.2 % (0-6); HEMATOCRIT 30.9 % (42.0-52.0); LYMPHOCYTES # (AUTO) 0.7 X10'3 (1.1-4.8); LYMPHOCYTES % (AUTO) 4.4 % (21-51); MEAN CORPUSCULAR HEMOGLOBIN 29.8 PG (27.0-31.0); MEAN CORPUSCULAR HGB CONC 32.3 g/dL (33.0-36.5); MEAN CORPUSCULAR VOLUME 92.5 FL (78-98); MEAN PLATELET VOLUME 9.6 FL (7.4-10.4); MONOCYTES # (AUTO) 1.4 X10'3 (0-0.9); MONOCYTES % (AUTO) 8.6 % (2-12); NEUTROPHILS # (AUTO) 13.6 X10'3 (1.8-7.7); NEUTROPHILS % (AUTO) 86.4 % (42-75); PLATELET COUNT 188 X10'3 (140-440); RED BLOOD COUNT 3.34 X10'6 (4.70-6.10); RED CELL DISTRIBUTION WIDTH 15.7 % (11.5-14.5); WHITE BLOOD COUNT 15.7 X10'3 (4.5-11.0)
[2022-01-01 04:38] LABS: ALANINE AMINOTRANSFERASE 40 U/L (12-78); ALBUMIN 1.9 G/DL (3.4-5.0); ALBUMIN/GLOBULIN RATIO 0.6 (1.1-1.5); ALKALINE PHOSPHATASE 84 IU/L (46-116); ANION GAP 10 (8-16); ASPARTATE AMINO TRANSFERASE 32 U/L (10-37); BILIRUBIN,TOTAL 0.3 MG/DL (0.1-1.0); CALCIUM 7.8 MG/DL (8.5-10.1); CHLORIDE 104 MMOL/L (99-107); CREATININE 6.28 MG/DL (0.60-1.10); GLUCOSE 128 MG/DL (70-104); MAGNESIUM 2.6 MG/DL (1.5-2.4); PHOSPHORUS 8.3 MG/DL (2.3-4.5); POTASSIUM 5.7 MMOL/L (3.5-5.1); SODIUM 138 MMOL/L (135-145); TOTAL PROTEIN 4.9 G/DL (6.4-8.2); VANCOMYCIN,RANDOM 15.5 UG/ML; eGFR 9 ML/MIN
[2022-01-01 04:45] LABS: BLOOD UREA NITROGEN 156 MG/DL (7-18); BUN/CREATININE RATIO 24.8 (5.4-32.0)
[2022-01-01] MEDS ORDERED: NORepinephrine inj. 8 MG in dextrose 5%-water 242 ML IV SCH (04:45)
[2022-01-01] MEDS: NORepinephrine 8mg/ 250ml NS 250 ML IV SCH ×2 (04:52→16:38)
--- NOTE | 2022-01-01 05:00 | NUR ---
Patient to CT for head, abdomen, pelvis CT. RT, RN and FLOOR CLERK with patient to CT. Patient placed on transport monitor. Prior to taking patient for CT patient had a very large bowel movement of dark brown, foul smelling stool. Sample sent to lab per MD order. Patient to CT, tolerated well without incident. Back to Room at 0555 Dr. Caputo at bedside.
[2022-01-01 05:26] LABS: PLATELET ESTIMATE NORMAL; TOTAL CELLS COUNTED 100
--- NOTE | 2022-01-01 06:20 | NUR ---
Problems reprioritized. Patient report given, questions answered & plan of care reviewed with DANIEL Edmondson.
--- NOTE | 2022-01-01 06:47 | NUR ---
[facility] [phone]
[2022-01-01] MEDS ORDERED: magnesium 4gm in 100ml NS 100 ML IV PRN (07:30)
[2022-01-01] MEDS ORDERED: calcium chloride inj. 1,000 MG in normal saline 100ml IV soln 100 ML IV PRN (07:30)
[2022-01-01] MEDS ORDERED: sodium phosphate inj. 30 MMOL in normal saline 250ml IV soln 250 ML IV PRN (07:30)
[2022-01-01] MEDS ORDERED: heparin 10,000 units/1 ML INJ IV ONE (07:30)
[2022-01-01] MEDS: bicarb dialysis sol 2K+/3 Ca2+ 5,000 ML HE SCH ×5 (07:30→18:31)
[2022-01-01] MEDS ORDERED: heparin 10,000 units/1 ML INJ IV PRN (07:30)
[2022-01-01] MEDS ORDERED: zinc oxide ointment 30gm tube TP SCH (08:00)
[2022-01-01] MEDS: piperacillin/tazo 3.375gm/50ml 50 ML IV SCH ×2 (08:00→20:48)
[2022-01-01] MEDS: lactobacillus rhamnosus 10,000 MMU CELLS/CAPSULE PO SCH ×2 (08:00→20:00)
[2022-01-01] MEDS: nystatin 15 GM powder TP SCH ×2 (08:00→21:49)
[2022-01-01] MEDS ORDERED: heparin, porcine 5000 units/ml vial SQ SCH (08:00)
[2022-01-01] MEDS: docusate sod 100mg capsule PO SCH ×2 (08:00→20:00)
[2022-01-01] MEDS: SODIUM ZIRCONIUM CYCLOSILICATE 10 GM POWD.PACK PO SCH ×2 (08:00→13:00)
[2022-01-01] MEDS: heparin 25,000 UNIT/250ml bag 250 ML IV SCH (08:25)
[2022-01-01 08:43] LABS: BASOPHILS % (AUTO) 0.2 % (0-1); EOSINOPHILS % (AUTO) 0.2 % (0-6); HEMATOCRIT 33.3 % (42.0-52.0); HEMOGLOBIN 10.9 g/dl (14.0-17.9); LYMPHOCYTES # (AUTO) 0.7 X10'3 (1.1-4.8); MEAN CORPUSCULAR HGB CONC 32.8 g/dL (33.0-36.5); MEAN CORPUSCULAR VOLUME 91.7 FL (78-98); MEAN PLATELET VOLUME 9.3 FL (7.4-10.4); MONOCYTES # (AUTO) 1.4 X10'3 (0-0.9); MONOCYTES % (AUTO) 8.1 % (2-12); NEUTROPHILS % (AUTO) 87.5 % (42-75); PLATELET COUNT 207 X10'3 (140-440); RED BLOOD COUNT 3.63 X10'6 (4.70-6.10); RED CELL DISTRIBUTION WIDTH 15.8 % (11.5-14.5); WHITE BLOOD COUNT 17.2 X10'3 (4.5-11.0)
[2022-01-01 08:51] LABS: APTT 30 SECONDS (22-32)
[2022-01-01 09:06] LABS: ALBUMIN 2.2 G/DL (3.4-5.0); ANION GAP 11 (8-16); BLOOD UREA NITROGEN 148 MG/DL (7-18); BUN/CREATININE RATIO 24.3 (5.4-32.0); CALCIUM 7.9 MG/DL (8.5-10.1); CHLORIDE 103 MMOL/L (99-107); CREATININE 6.08 MG/DL (0.60-1.10); GLUCOSE 136 MG/DL (70-104); PHOSPHORUS 7.6 MG/DL (2.3-4.5); POTASSIUM 5.4 MMOL/L (3.5-5.1); SODIUM 139 MMOL/L (135-145); TOTAL CARBON DIOXIDE 24.7 MMOL/L (24-32); eGFR 9 ML/MIN
[2022-01-01 09:31] LABS: BASOPHILS # (AUTO) 0.1 X10'3 (0-0.2); BASOPHILS % (AUTO) 0.4 % (0-1); EOSINOPHILS % (AUTO) 0.1 % (0-6); HEMATOCRIT 33.9 % (42.0-52.0); LYMPHOCYTES # (AUTO) 0.6 X10'3 (1.1-4.8); LYMPHOCYTES % (AUTO) 3.9 % (21-51); MEAN CORPUSCULAR HEMOGLOBIN 29.6 PG (27.0-31.0); MEAN CORPUSCULAR HGB CONC 32.4 g/dL (33.0-36.5); MEAN CORPUSCULAR VOLUME 91.5 FL (78-98); MEAN PLATELET VOLUME 9.3 FL (7.4-10.4); MONOCYTES # (AUTO) 0.7 X10'3 (0-0.9); MONOCYTES % (AUTO) 4.3 % (2-12); NEUTROPHILS # (AUTO) 14.5 X10'3 (1.8-7.7); NEUTROPHILS % (AUTO) 91.3 % (42-75); PLATELET COUNT 205 X10'3 (140-440); RED BLOOD COUNT 3.71 X10'6 (4.70-6.10); RED CELL DISTRIBUTION WIDTH 15.8 % (11.5-14.5); WHITE BLOOD COUNT 15.9 X10'3 (4.5-11.0)
[2022-01-01 10:08] LABS: ALBUMIN 2.2 G/DL (3.4-5.0); ANION GAP 13 (8-16); BLOOD UREA NITROGEN 150 MG/DL (7-18); BUN/CREATININE RATIO 26.8 (5.4-32.0); CALCIUM 7.6 MG/DL (8.5-10.1); CHLORIDE 103 MMOL/L (99-107); CREATININE 5.59 MG/DL (0.60-1.10); GLUCOSE 141 MG/DL (70-104); MAGNESIUM 2.4 MG/DL (1.5-2.4); PHOSPHORUS 7.1 MG/DL (2.3-4.5); POTASSIUM 5.1 MMOL/L (3.5-5.1); SODIUM 140 MMOL/L (135-145); TOTAL CARBON DIOXIDE 24.4 MMOL/L (24-32); eGFR 10 ML/MIN
[2022-01-01 10:48] LABS: BASOPHILS % (AUTO) 0.2 % (0-1); EOSINOPHILS % (AUTO) 0.1 % (0-6); HEMATOCRIT 33.4 % (42.0-52.0); LYMPHOCYTES # (AUTO) 0.5 X10'3 (1.1-4.8); LYMPHOCYTES % (AUTO) 3.2 % (21-51); MEAN CORPUSCULAR HEMOGLOBIN 29.9 PG (27.0-31.0); MEAN CORPUSCULAR HGB CONC 32.9 g/dL (33.0-36.5); MEAN PLATELET VOLUME 9.5 FL (7.4-10.4); MONOCYTES # (AUTO) 0.8 X10'3 (0-0.9); MONOCYTES % (AUTO) 4.6 % (2-12); NEUTROPHILS # (AUTO) 15.1 X10'3 (1.8-7.7); NEUTROPHILS % (AUTO) 91.9 % (42-75); PLATELET COUNT 216 X10'3 (140-440); RED BLOOD COUNT 3.67 X10'6 (4.70-6.10); RED CELL DISTRIBUTION WIDTH 15.6 % (11.5-14.5); WHITE BLOOD COUNT 16.4 X10'3 (4.5-11.0)
--- NOTE | 2022-01-01 11:04 | NUR ---
01/01/22 0940: Duplicate consult request received after patient was transferred to ICU. Spoke with the primary nurse to clarify skin condition/orders and offer assistance in performing wound care. The primary nurse said that she was able to review his skin conditions and orders for a clear understanding of needs, the consult was placed by the mold shifter and that she was planning on performing wound care a little later. She was told to contact wound care if she found anything new or needed help. Addendum: 01/01/22 at 1126 by Lorena Slaughter RN Amended: Links added. Addendum: 01/01/22 at 1416 by Daisy Grant RN Reviewed by Daisy Grant RN
[2022-01-01 11:12] LABS: ANION GAP 11 (8-16); BLOOD UREA NITROGEN 142 MG/DL (7-18); BUN/CREATININE RATIO 26.7 (5.4-32.0); CALCIUM 7.6 MG/DL (8.5-10.1); CHLORIDE 104 MMOL/L (99-107); CREATININE 5.32 MG/DL (0.60-1.10); GLUCOSE 139 MG/DL (70-104); MAGNESIUM 2.2 MG/DL (1.5-2.4); PHOSPHORUS 6.6 MG/DL (2.3-4.5); SODIUM 140 MMOL/L (135-145); TOTAL CARBON DIOXIDE 24.6 MMOL/L (24-32); eGFR 10 ML/MIN
[2022-01-01 11:24] LABS: BASOPHILS # (AUTO) 0.1 X10'3 (0-0.2); BASOPHILS % (AUTO) 0.3 % (0-1); EOSINOPHILS % (AUTO) 0.1 % (0-6); HEMOGLOBIN 11.3 g/dl (14.0-17.9); LYMPHOCYTES # (AUTO) 0.7 X10'3 (1.1-4.8); MEAN CORPUSCULAR HEMOGLOBIN 29.4 PG (27.0-31.0); MEAN CORPUSCULAR HGB CONC 32.1 g/dL (33.0-36.5); MEAN CORPUSCULAR VOLUME 91.6 FL (78-98); MONOCYTES # (AUTO) 1.5 X10'3 (0-0.9); MONOCYTES % (AUTO) 6.9 % (2-12); NEUTROPHILS # (AUTO) 19.2 X10'3 (1.8-7.7); NEUTROPHILS % (AUTO) 89.7 % (42-75); PLATELET COUNT 226 X10'3 (140-440); RED BLOOD COUNT 3.82 X10'6 (4.70-6.10); RED CELL DISTRIBUTION WIDTH 15.7 % (11.5-14.5); WHITE BLOOD COUNT 21.4 X10'3 (4.5-11.0)
[2022-01-01 11:26] LABS: OCCULT BLOOD STOOL POSITIVE (Neg)
[2022-01-01 11:38] LABS: ALBUMIN 2.2 G/DL (3.4-5.0); ANION GAP 9 (8-16); BLOOD UREA NITROGEN 137 MG/DL (7-18); BUN/CREATININE RATIO 27.5 (5.4-32.0); CALCIUM 7.6 MG/DL (8.5-10.1); CHLORIDE 104 MMOL/L (99-107); CREATININE 4.98 MG/DL (0.60-1.10); GLUCOSE 143 MG/DL (70-104); MAGNESIUM 2.4 MG/DL (1.5-2.4); PHOSPHORUS 6.5 MG/DL (2.3-4.5); POTASSIUM 4.9 MMOL/L (3.5-5.1); SODIUM 138 MMOL/L (135-145); TOTAL CARBON DIOXIDE 25.5 MMOL/L (24-32); eGFR 11 ML/MIN
--- NOTE | 2022-01-01 12:12 | NUR ---
Matias Consult: Matias 9 per EMR w/ L thigh unstageable PI, IAD, and bilateral ischium SDTI's per WOC note. Pt now transferred to critical care BIPAP dependent requiring CVVH and remain NPO at this time per manager of health. Pt initial meals intake poor on prior heart healthy diet and IF to remain NPO would benefit from NG feeds to optimize nutrition status w/ CVVH and sepsis DX per EMR. TF recs below in case nutrition support. Recs: 1. IF PO diet to resume liberalize to Regular diet given age and poor PO trends w/ Devyn Smoothies BIDBD pending MD verification of ONS in EMR 2. IF TF; Vital High Protein at 85ml/hr goal would provide 2040ml volume/day, 2040 kcals, 1714ml water, and 178g protein. 3. IF TF; additional water flush per manager of health on CVVH 4. IF TF; PALB Q /; daily wts 5. routine bowel care 6. daily wts Addendum: 01/01/22 at [address] Amended: Links added.
[2022-01-01 12:37] LABS: ABG BASE EXCESS -5.5 mmol/L (-2.0-2.0); ABG HCO3 22.9 mmol/L (22.0-26.0); ABG OXYGEN SATURATION 89.5 % (94-97); ABG PCO2 (T) 56.2 mmHg (35.0-48.0); ABG PO2 (T) 55.2 mmHg (75.0-100.0); ALLEN'S TEST POSITIVE; FCOHb 0.6 % (0.0-3.9); FMetHb 0.4 % (0.0-1.5); FO2Hb 88.6 % (94-97); PATIENT TEMPERATURE 36.4; RESPIRATORY RATE 22 b/min; TOTAL HEMOGLOBIN 12.4 G/dl (14.0-18.0)
[2022-01-01 17:08] LABS: BASOPHILS % (AUTO) 0.4 % (0-1); EOSINOPHILS % (AUTO) 0.2 % (0-6); HEMATOCRIT 33.4 % (42.0-52.0); HEMOGLOBIN 10.9 g/dl (14.0-17.9); LYMPHOCYTES # (AUTO) 0.5 X10'3 (1.1-4.8); LYMPHOCYTES % (AUTO) 4.3 % (21-51); MEAN CORPUSCULAR HEMOGLOBIN 29.8 PG (27.0-31.0); MEAN CORPUSCULAR HGB CONC 32.6 g/dL (33.0-36.5); MEAN CORPUSCULAR VOLUME 91.4 FL (78-98); MONOCYTES # (AUTO) 0.4 X10'3 (0-0.9); MONOCYTES % (AUTO) 3.3 % (2-12); NEUTROPHILS # (AUTO) 10.2 X10'3 (1.8-7.7); NEUTROPHILS % (AUTO) 91.8 % (42-75); PLATELET COUNT 209 X10'3 (140-440); RED BLOOD COUNT 3.65 X10'6 (4.70-6.10); RED CELL DISTRIBUTION WIDTH 15.4 % (11.5-14.5); WHITE BLOOD COUNT 11.1 X10'3 (4.5-11.0)
[2022-01-01 17:57] LABS: ANION GAP 6 (8-16); BLOOD UREA NITROGEN 107 MG/DL (7-18); BUN/CREATININE RATIO 29.7 (5.4-32.0); CHLORIDE 106 MMOL/L (99-107); GLUCOSE 122 MG/DL (70-104); MAGNESIUM 2.2 MG/DL (1.5-2.4); PHOSPHORUS 5.2 MG/DL (2.3-4.5); POTASSIUM 4.3 MMOL/L (3.5-5.1); SODIUM 141 MMOL/L (135-145); TOTAL CARBON DIOXIDE 29.1 MMOL/L (24-32); eGFR 16 ML/MIN
[2022-01-01] MEDS ORDERED: dexmedetomidine inj. 400 MCG in dextrose 5%-water 100 ML IV SCH (20:10)
--- NOTE | 2022-01-01 20:35 | NUR ---
agitated and restless , trying to get up not staying still , CVVH keep alarming , called to MD orders received.
[2022-01-01] MEDS: dexmedetomidine/D5W 100mL 100 ML IV SCH (20:47)
[2022-01-01 21:37] LABS: APTT 44 SECONDS (22-32)
--- NOTE | 2022-01-01 21:40 | NUR ---
CVVH clotted , almond blancher notified , had large diarrhea at this time .
[2022-01-02] VITALS (24 sets, daily range): BP systolic 86–171; BP diastolic 41–88
[2022-01-02 01:00] LABS: BASOPHILS % (AUTO) 0.1 % (0-1); EOSINOPHILS % (AUTO) 0 % (0-6); HEMATOCRIT 31.4 % (42.0-52.0); HEMOGLOBIN 10.4 g/dl (14.0-17.9); LYMPHOCYTES # (AUTO) 0.3 X10'3 (1.1-4.8); LYMPHOCYTES % (AUTO) 1.6 % (21-51); MEAN CORPUSCULAR HGB CONC 33.1 g/dL (33.0-36.5); MEAN CORPUSCULAR VOLUME 90.7 FL (78-98); MEAN PLATELET VOLUME 9.2 FL (7.4-10.4); MONOCYTES % (AUTO) 4.5 % (2-12); NEUTROPHILS # (AUTO) 20.4 X10'3 (1.8-7.7); NEUTROPHILS % (AUTO) 93.8 % (42-75); PLATELET COUNT 208 X10'3 (140-440); RED BLOOD COUNT 3.46 X10'6 (4.70-6.10); RED CELL DISTRIBUTION WIDTH 15.3 % (11.5-14.5); WHITE BLOOD COUNT 21.7 X10'3 (4.5-11.0)
[2022-01-02 01:18] LABS: IONIZED CALCIUM SERUM 1.26 MMOL/L (1.03-1.32)
[2022-01-02 01:25] LABS: TOTAL CELLS COUNTED 100
[2022-01-02 01:26] LABS: PLATELET ESTIMATE NORMAL
[2022-01-02 01:27] LABS: ALANINE AMINOTRANSFERASE 45 U/L (12-78); ALBUMIN 1.9 G/DL (3.4-5.0); ALBUMIN/GLOBULIN RATIO 0.6 (1.1-1.5); ALKALINE PHOSPHATASE 102 IU/L (46-116); ANION GAP 11 (8-16); ASPARTATE AMINO TRANSFERASE 40 U/L (10-37); BILIRUBIN,TOTAL 0.3 MG/DL (0.1-1.0); BLOOD UREA NITROGEN 88 MG/DL (7-18); BUN/CREATININE RATIO 30.1 (5.4-32.0); CALCIUM 7.6 MG/DL (8.5-10.1); CHLORIDE 104 MMOL/L (99-107); CREATININE 2.92 MG/DL (0.60-1.10); GLUCOSE 134 MG/DL (70-104); POTASSIUM 3.9 MMOL/L (3.5-5.1); SODIUM 141 MMOL/L (135-145); TOTAL CARBON DIOXIDE 26.1 MMOL/L (24-32); VANCOMYCIN,RANDOM 7.8 UG/ML; eGFR 21 ML/MIN
--- NOTE | 2022-01-02 01:28 | NUR ---
CVVH restart at 0045
[2022-01-02] MEDS: bicarb dialysis sol 2K+/3 Ca2+ 5,000 ML HE SCH ×6 (01:56→15:54)
[2022-01-02] MEDS: potassium Cl 20mEq/100mL bag 100 ML IV PRN ×2 (02:00→03:19)
[2022-01-02] MEDS: dexmedetomidine/D5W 100mL 100 ML IV SCH ×4 (02:18→20:04)
[2022-01-02] MEDS: VANCOMYCIN LEVEL IV SCH (03:00)
[2022-01-02 03:43] LABS: APTT 52 SECONDS (22-32)
[2022-01-02] MEDS: heparin 25,000 UNIT/250ml bag 250 ML IV SCH ×2 (03:59→23:55)
[2022-01-02] MEDS: NORepinephrine 8mg/ 250ml NS 250 ML IV SCH ×2 (04:36→11:55)
--- NOTE | 2022-01-02 06:15 | NUR ---
Problems reprioritized. Patient report given, questions answered & plan of care reviewed with SERG SANCHEZ.
[2022-01-02 06:30] LABS: ANION GAP 8 (8-16); BLOOD UREA NITROGEN 66 MG/DL (7-18); BUN/CREATININE RATIO 30.1 (5.4-32.0); CHLORIDE 104 MMOL/L (99-107); CREATININE 2.19 MG/DL (0.60-1.10); GLUCOSE 137 MG/DL (70-104); MAGNESIUM 1.9 MG/DL (1.5-2.4); PHOSPHORUS 4.4 MG/DL (2.3-4.5); POTASSIUM 4.2 MMOL/L (3.5-5.1); SODIUM 140 MMOL/L (135-145); TOTAL CARBON DIOXIDE 27.8 MMOL/L (24-32); eGFR 29 ML/MIN
[2022-01-02 06:33] LABS: BASOPHILS # (AUTO) 0.1 X10'3 (0-0.2); BASOPHILS % (AUTO) 0.2 % (0-1); EOSINOPHILS % (AUTO) 0.1 % (0-6); HEMATOCRIT 34.7 % (42.0-52.0); HEMOGLOBIN 11.2 g/dl (14.0-17.9); LYMPHOCYTES # (AUTO) 0.5 X10'3 (1.1-4.8); LYMPHOCYTES % (AUTO) 1.6 % (21-51); MEAN CORPUSCULAR HEMOGLOBIN 29.6 PG (27.0-31.0); MEAN CORPUSCULAR HGB CONC 32.1 g/dL (33.0-36.5); MONOCYTES # (AUTO) 1.1 X10'3 (0-0.9); MONOCYTES % (AUTO) 3.4 % (2-12); NEUTROPHILS # (AUTO) 29.4 X10'3 (1.8-7.7); NEUTROPHILS % (AUTO) 94.7 % (42-75); PLATELET COUNT 211 X10'3 (140-440); RED BLOOD COUNT 3.77 X10'6 (4.70-6.10); RED CELL DISTRIBUTION WIDTH 15.6 % (11.5-14.5)
[2022-01-02] MEDS: piperacillin/tazo 3.375gm/50ml 50 ML IV SCH ×2 (07:36→19:42)
[2022-01-02] MEDS ORDERED: vancomycin/NS 1 GM ADD-VANTAGE 250 ML X 1 DOSE IV ONE (08:00)
[2022-01-02] MEDS: nystatin 15 GM powder TP SCH ×2 (08:00→20:00)
[2022-01-02] MEDS ORDERED: VANCOMYCIN 1GM/200ML IVPB 200 ML IV ONE (08:00)
[2022-01-02] MEDS: zinc oxide ointment 30gm tube TP SCH ×2 (08:00→20:00)
[2022-01-02] MEDS: docusate sod 100mg capsule PO SCH ×2 (08:00→19:47)
[2022-01-02] MEDS: lactobacillus rhamnosus 10,000 MMU CELLS/CAPSULE PO SCH ×2 (08:00→19:47)
--- NOTE | 2022-01-02 08:34 | NUR ---
pt's rectal temp is 34.6. reno george applied
--- NOTE | 2022-01-02 09:10 | NUR ---
pt had sudden desat to 74% fio2 increased to 60% for short period. now titrating it down
[2022-01-02 09:41] LABS: ABG HCO3 28.4 mmol/L (22.0-26.0); ABG OXYGEN SATURATION 98.4 % (94-97); ABG PCO2 (T) 72.7 mmHg (35.0-48.0); ABG PO2 (T) 117.4 mmHg (75.0-100.0); ALLEN'S TEST POSITIVE; FCOHb 0.8 % (0.0-3.9); FMetHb 0.4 % (0.0-1.5); FO2Hb 97.2 % (94-97); PATIENT TEMPERATURE 34.3; RESPIRATORY RATE 22 b/min
[2022-01-02 09:44] LABS: APTT 66 SECONDS (22-32)
[2022-01-02 10:22] LABS: CLARITY,URINE CLOUDY (Clear); COLOR,URINE YELLOW (Yellow); GLUCOSE, URINE NEGATIVE (Neg); KETONES,URINE NEGATIVE (Neg); LEUKOCYTE ESTERASE ,URINE TRACE (Neg); NITRITES, URINE NEGATIVE (Neg); OCCULT BLOOD,URINE LARGE (Neg); PH,URINE 5.5 (4.8-8.0); PROTEIN,URINE TRACE mg/dl (Neg); UROBILINOGEN,URINE 0.2 E.U/dL (0.2-1.0)
[2022-01-02 10:23] LABS: UA COLLECTION TYPE NON-SPECIFIED
[2022-01-02 10:32] LABS: RBC,URINE 20-50 /HPF (0-2); WBC,URINE 0-4 /HPF (0-4)
[2022-01-02 10:33] LABS: BACTERIA,URINE FEW /HPF (Neg); MUCUS STRANDS FEW /LPF (Neg); SQUAMOUS EPITHELIAL CELL,UR FEW /LPF (FEW); TRANSITIONAL EPI CELLS,URINE FEW /HPF; WBC CLUMPS,URINE FEW /HPF (NEGATIVE)
[2022-01-02 10:34] LABS: AMORPHOUS URATES 3+; COARSE GRANULAR CAST 0-3 /LPF (NEGATIVE); HYALINE CASTS 0-3 /LPF (NEGATIVE)
[2022-01-02 11:19] LABS: ABG BASE EXCESS -1.4 mmol/L (-2.0-2.0); ABG HCO3 28.9 mmol/L (22.0-26.0); ABG OXYGEN SATURATION 97.1 % (94-97); ABG PCO2 (T) 71.4 mmHg (35.0-48.0); ABG PO2 (T) 85.2 mmHg (75.0-100.0); ALLEN'S TEST POSITIVE; FCOHb 0.7 % (0.0-3.9); FMetHb 0.4 % (0.0-1.5); PATIENT TEMPERATURE 34.4; RESPIRATORY RATE 26 b/min; TOTAL HEMOGLOBIN 12.3 G/dl (14.0-18.0)
[2022-01-02] MEDS: pantoprazole 40MG/D5 100ML BAG 100 ML IV SCH ×3 (11:33→19:18)
--- NOTE | 2022-01-02 12:08 | NUR ---
TF Consult: Pt DX sepsis per fishing rod mechanic remains BIPAP dependent w/ corpak to be placed today for nutrition per fishing rod mechanic at rounds. TF recs below given pt needs. LBM 2/2 per EMR. Will monitor for TF tolerance and adjustment needs. Recs: 1. Continuous TF per MD using Vital High Protein at 85ml/hr goal would provide 2040ml volume/day, 2040 kcals, 1714ml water, and 178g protein. 2. additional water flush per fishing rod mechanic on CVVH 3. PALB Q /; daily wts 4. consider Phos binder w/ TF per fishing rod mechanic discretion; Phos WNL this AM 5. routine bowel care Addendum: 01/02/22 at [address] Amended: Links added.
[2022-01-02 12:27] LABS: BASOPHILS % (AUTO) 0 % (0-1); EOSINOPHILS % (AUTO) 0 % (0-6); HEMATOCRIT 35.6 % (42.0-52.0); HEMOGLOBIN 11.6 g/dl (14.0-17.9); LYMPHOCYTES # (AUTO) 0.5 X10'3 (1.1-4.8); LYMPHOCYTES % (AUTO) 1.8 % (21-51); MEAN CORPUSCULAR HEMOGLOBIN 29.9 PG (27.0-31.0); MEAN CORPUSCULAR HGB CONC 32.6 g/dL (33.0-36.5); MEAN CORPUSCULAR VOLUME 91.6 FL (78-98); MEAN PLATELET VOLUME 8.8 FL (7.4-10.4); MONOCYTES % (AUTO) 3.7 % (2-12); NEUTROPHILS # (AUTO) 25.4 X10'3 (1.8-7.7); NEUTROPHILS % (AUTO) 94.5 % (42-75); PLATELET COUNT 208 X10'3 (140-440); RED BLOOD COUNT 3.89 X10'6 (4.70-6.10); RED CELL DISTRIBUTION WIDTH 15.5 % (11.5-14.5)
[2022-01-02 12:50] LABS: WHITE BLOOD COUNT 26.8 X10'3 (4.5-11.0)
[2022-01-02 13:07] LABS: ALBUMIN 1.9 G/DL (3.4-5.0); ANION GAP 5 (8-16); BLOOD UREA NITROGEN 55 MG/DL (7-18); BUN/CREATININE RATIO 32.5 (5.4-32.0); CHLORIDE 104 MMOL/L (99-107); CREATININE 1.69 MG/DL (0.60-1.10); GLUCOSE 145 MG/DL (70-104); MAGNESIUM 1.9 MG/DL (1.5-2.4); PHOSPHORUS 3.8 MG/DL (2.3-4.5); POTASSIUM 3.9 MMOL/L (3.5-5.1); SODIUM 140 MMOL/L (135-145); TOTAL CARBON DIOXIDE 30.8 MMOL/L (24-32); eGFR 39 ML/MIN
[2022-01-02 13:08] LABS: IONIZED CALCIUM SERUM 1.27 MMOL/L (1.03-1.32)
[2022-01-02 13:20] LABS: PREALBUMIN 7.7 MG/DL (19-36)
[2022-01-02] MEDS: hydrocortisone sod succ/PF 100mg/2ml inj. IV SCH ×2 (14:00→19:39)
[2022-01-02 15:18] LABS: APTT 50 SECONDS (22-32)
[2022-01-02] MEDS: Duosol 4K/3 Ca (w/calcium) 5,000 ML HE SCH ×5 (15:29→23:58)
[2022-01-02 15:37] LABS: ABG BASE EXCESS -2.7 mmol/L (-2.0-2.0); ABG HCO3 24.8 mmol/L (22.0-26.0); ABG OXYGEN SATURATION 97.2 % (94-97); ABG PCO2 (T) 49.4 mmHg (35.0-48.0); ALLEN'S TEST POSITIVE; FCOHb 0.8 % (0.0-3.9); FMetHb 0.3 % (0.0-1.5); FO2Hb 96.1 % (94-97); PATIENT TEMPERATURE 34.8; RESPIRATORY RATE 26 b/min; TOTAL HEMOGLOBIN 12.6 G/dl (14.0-18.0)
[2022-01-02] MEDS: JUVEN Smoothie Arginine/Glut./Ca2+Bmb (Juven 19.3pkt) 240ml cup PO SCH (17:30)
--- NOTE | 2022-01-02 17:36 | NUR ---
corpak placed earlier.it is in the stomach. recheck of kub at 1700 showed still in the stomach. results reviewed with discharge coordinator and tube feed started at 30cc/hr
[2022-01-02 18:08] LABS: BASOPHILS % (AUTO) 0 % (0-1); EOSINOPHILS % (AUTO) 0 % (0-6); HEMATOCRIT 34.7 % (42.0-52.0); HEMOGLOBIN 11.2 g/dl (14.0-17.9); LYMPHOCYTES # (AUTO) 0.4 X10'3 (1.1-4.8); LYMPHOCYTES % (AUTO) 1.6 % (21-51); MEAN CORPUSCULAR HEMOGLOBIN 29.1 PG (27.0-31.0); MEAN CORPUSCULAR HGB CONC 32.2 g/dL (33.0-36.5); MEAN CORPUSCULAR VOLUME 90.3 FL (78-98); MEAN PLATELET VOLUME 8.5 FL (7.4-10.4); MONOCYTES # (AUTO) 0.8 X10'3 (0-0.9); MONOCYTES % (AUTO) 3.1 % (2-12); NEUTROPHILS # (AUTO) 24.8 X10'3 (1.8-7.7); NEUTROPHILS % (AUTO) 95.3 % (42-75); PLATELET COUNT 218 X10'3 (140-440); RED BLOOD COUNT 3.84 X10'6 (4.70-6.10); RED CELL DISTRIBUTION WIDTH 15.4 % (11.5-14.5)
[2022-01-02 18:31] LABS: ALBUMIN 1.8 G/DL (3.4-5.0); ANION GAP 11 (8-16); BLOOD UREA NITROGEN 40 MG/DL (7-18); BUN/CREATININE RATIO 28.6 (5.4-32.0); CHLORIDE 105 MMOL/L (99-107); GLUCOSE 143 MG/DL (70-104); MAGNESIUM 1.8 MG/DL (1.5-2.4); PHOSPHORUS 3.4 MG/DL (2.3-4.5); POTASSIUM 3.9 MMOL/L (3.5-5.1); SODIUM 142 MMOL/L (135-145); TOTAL CARBON DIOXIDE 26.2 MMOL/L (24-32); eGFR 49 ML/MIN
[2022-01-03] VITALS (24 sets, daily range): BP systolic 87–145; BP diastolic 41–95
[2022-01-03] MEDS: Duosol 4K/3 Ca (w/calcium) 5,000 ML HE SCH ×7 (00:03→10:32)
[2022-01-03] MEDS: pantoprazole 40MG/NS 100ML BAG 100 ML IV SCH ×6 (00:35→20:18)
[2022-01-03] MEDS: dexmedetomidine/D5W 100mL 100 ML IV SCH ×5 (00:36→20:19)
[2022-01-03] MEDS ORDERED: metoclopramide 5 mg/ml inj IV ONE (00:45)
[2022-01-03] MEDS: acetaminophen 1,000mg/100ml IV 100 ML IV SCH ×4 (01:13→20:00)
[2022-01-03] MEDS: hydrocortisone sod succ/PF 100mg/2ml inj. IV SCH ×3 (02:01→14:47)
[2022-01-03 02:42] LABS: ABG BASE EXCESS -2.3 mmol/L (-2.0-2.0); ABG HCO3 22.6 mmol/L (22.0-26.0); ABG OXYGEN SATURATION 94.6 % (94-97); ABG PO2 (T) 66.3 mmHg (75.0-100.0); ALLEN'S TEST POSITIVE; FCOHb 0.8 % (0.0-3.9); FMetHb 0.3 % (0.0-1.5); FO2Hb 93.6 % (94-97); PATIENT TEMPERATURE 36.6; RESPIRATORY RATE 26 b/min; TOTAL HEMOGLOBIN 12.2 G/dl (14.0-18.0)
[2022-01-03] MEDS: VANCOMYCIN LEVEL IV SCH (03:00)
[2022-01-03 03:18] LABS: BASOPHILS % (AUTO) 0 % (0-1); EOSINOPHILS % (AUTO) 0 % (0-6); HEMATOCRIT 33.1 % (42.0-52.0); HEMOGLOBIN 10.6 g/dl (14.0-17.9); LYMPHOCYTES # (AUTO) 0.5 X10'3 (1.1-4.8); LYMPHOCYTES % (AUTO) 1.5 % (21-51); MEAN CORPUSCULAR HEMOGLOBIN 29.1 PG (27.0-31.0); MEAN CORPUSCULAR HGB CONC 32.1 g/dL (33.0-36.5); MEAN CORPUSCULAR VOLUME 90.9 FL (78-98); MEAN PLATELET VOLUME 9.4 FL (7.4-10.4); MONOCYTES # (AUTO) 0.8 X10'3 (0-0.9); MONOCYTES % (AUTO) 2.7 % (2-12); NEUTROPHILS # (AUTO) 29.4 X10'3 (1.8-7.7); NEUTROPHILS % (AUTO) 95.8 % (42-75); PLATELET COUNT 211 X10'3 (140-440); RED BLOOD COUNT 3.64 X10'6 (4.70-6.10); RED CELL DISTRIBUTION WIDTH 15.6 % (11.5-14.5)
[2022-01-03 03:38] LABS: ALANINE AMINOTRANSFERASE 36 U/L (12-78); ALBUMIN 1.7 G/DL (3.4-5.0); ALBUMIN/GLOBULIN RATIO 0.6 (1.1-1.5); ALKALINE PHOSPHATASE 89 IU/L (46-116); ANION GAP 8 (8-16); ASPARTATE AMINO TRANSFERASE 27 U/L (10-37); BILIRUBIN,TOTAL 0.4 MG/DL (0.1-1.0); BLOOD UREA NITROGEN 37 MG/DL (7-18); BUN/CREATININE RATIO 28.2 (5.4-32.0); CALCIUM 7.7 MG/DL (8.5-10.1); CHLORIDE 105 MMOL/L (99-107); CREATININE 1.31 MG/DL (0.60-1.10); GLUCOSE 159 MG/DL (70-104); POTASSIUM 3.8 MMOL/L (3.5-5.1); SODIUM 140 MMOL/L (135-145); TOTAL CARBON DIOXIDE 27.4 MMOL/L (24-32); TOTAL PROTEIN 4.7 G/DL (6.4-8.2); eGFR 53 ML/MIN
[2022-01-03 03:39] LABS: MAGNESIUM 1.9 MG/DL (1.5-2.4); PHOSPHORUS 3.2 MG/DL (2.3-4.5); VANCOMYCIN,RANDOM 8.5 UG/ML
[2022-01-03 03:40] LABS: WHITE BLOOD COUNT 30.7 X10'3 (4.5-11.0)
[2022-01-03 04:21] LABS: IONIZED CALCIUM SERUM 1.26 MMOL/L (1.03-1.32)
[2022-01-03 05:08] LABS: TOTAL CELLS COUNTED 100
[2022-01-03 05:13] LABS: PLATELET ESTIMATE NORMAL
[2022-01-03] MEDS: piperacillin/tazo 3.375gm/50ml 50 ML IV SCH ×2 (07:19→20:24)
[2022-01-03] MEDS: zinc oxide ointment 30gm tube TP SCH ×2 (07:19→20:00)
[2022-01-03] MEDS: nystatin 15 GM powder TP SCH ×2 (07:19→20:00)
[2022-01-03] MEDS: lactobacillus rhamnosus 10,000 MMU CELLS/CAPSULE PO SCH ×2 (07:19→20:00)
[2022-01-03] MEDS: docusate sodium 100mg/10ml UD cup PO SCH ×2 (07:19→20:00)
[2022-01-03] MEDS: JUVEN Smoothie Arginine/Glut./Ca2+Bmb (Juven 19.3pkt) 240ml cup PO SCH (07:30)
[2022-01-03 08:14] LABS: BASOPHILS % (AUTO) 0.1 % (0-1); EOSINOPHILS % (AUTO) 0.1 % (0-6); HEMATOCRIT 31.3 % (42.0-52.0); HEMOGLOBIN 10.3 g/dl (14.0-17.9); LYMPHOCYTES # (AUTO) 0.5 X10'3 (1.1-4.8); LYMPHOCYTES % (AUTO) 1.6 % (21-51); MEAN CORPUSCULAR HEMOGLOBIN 29.6 PG (27.0-31.0); MEAN CORPUSCULAR HGB CONC 32.9 g/dL (33.0-36.5); MEAN CORPUSCULAR VOLUME 89.9 FL (78-98); MEAN PLATELET VOLUME 8.8 FL (7.4-10.4); MONOCYTES % (AUTO) 3.1 % (2-12); NEUTROPHILS # (AUTO) 30.7 X10'3 (1.8-7.7); NEUTROPHILS % (AUTO) 95.1 % (42-75); PLATELET COUNT 189 X10'3 (140-440); RED BLOOD COUNT 3.48 X10'6 (4.70-6.10); RED CELL DISTRIBUTION WIDTH 14.9 % (11.5-14.5)
[2022-01-03 08:20] LABS: WHITE BLOOD COUNT 32.2 X10'3 (4.5-11.0)
[2022-01-03 08:33] LABS: ALBUMIN 1.6 G/DL (3.4-5.0); ANION GAP 8 (8-16); BLOOD UREA NITROGEN 33 MG/DL (7-18); CHLORIDE 106 MMOL/L (99-107); CREATININE 1.22 MG/DL (0.60-1.10); GLUCOSE 206 MG/DL (70-104); MAGNESIUM 1.8 MG/DL (1.5-2.4); PHOSPHORUS 2.7 MG/DL (2.3-4.5); POTASSIUM 3.7 MMOL/L (3.5-5.1); SODIUM 141 MMOL/L (135-145); TOTAL CARBON DIOXIDE 27.4 MMOL/L (24-32); eGFR 57 ML/MIN
[2022-01-03] MEDS ORDERED: dextrose ORAL solution 15 GM/59 ML bottle PO PRN ×2 (10:40)
[2022-01-03] MEDS ORDERED: dextrose 50%-water 50ml dispensing syringe IV PRN ×2 (10:40)
[2022-01-03] MEDS ORDERED: glucagon, human recombinant 1mg kit SUBCUT PRN (10:40)
[2022-01-03] MEDS ORDERED: MESSAGE TO PHARMACY PO ONE (10:40)
[2022-01-03] MEDS: HYDROmorphone 1 mg/ml syringe IV PRN ×3 (11:11→20:53)
--- NOTE | 2022-01-03 13:18 | NUR ---
CVVH filter being changed by fur matcher
[2022-01-03 14:32] LABS: BASOPHILS # (AUTO) 0.1 X10'3 (0-0.2); BASOPHILS % (AUTO) 0.4 % (0-1); EOSINOPHILS % (AUTO) 0 % (0-6); HEMATOCRIT 31.4 % (42.0-52.0); HEMOGLOBIN 10.2 g/dl (14.0-17.9); LYMPHOCYTES # (AUTO) 0.4 X10'3 (1.1-4.8); LYMPHOCYTES % (AUTO) 1.2 % (21-51); MEAN CORPUSCULAR HEMOGLOBIN 29.4 PG (27.0-31.0); MEAN CORPUSCULAR HGB CONC 32.6 g/dL (33.0-36.5); MEAN PLATELET VOLUME 9.2 FL (7.4-10.4); MONOCYTES # (AUTO) 1.1 X10'3 (0-0.9); NEUTROPHILS # (AUTO) 35.7 X10'3 (1.8-7.7); NEUTROPHILS % (AUTO) 95.4 % (42-75); PLATELET COUNT 180 X10'3 (140-440); RED BLOOD COUNT 3.49 X10'6 (4.70-6.10); RED CELL DISTRIBUTION WIDTH 15.4 % (11.5-14.5)
--- NOTE | 2022-01-03 14:38 | NUR ---
[facility] running
[2022-01-03 14:40] LABS: ALBUMIN 1.5 G/DL (3.4-5.0); ANION GAP 7 (8-16); BLOOD UREA NITROGEN 34 MG/DL (7-18); BUN/CREATININE RATIO 31.2 (5.4-32.0); CHLORIDE 107 MMOL/L (99-107); CREATININE 1.09 MG/DL (0.60-1.10); GLUCOSE 202 MG/DL (70-104); MAGNESIUM 1.8 MG/DL (1.5-2.4); PHOSPHORUS 2.4 MG/DL (2.3-4.5); POTASSIUM 3.6 MMOL/L (3.5-5.1); SODIUM 142 MMOL/L (135-145); TOTAL CARBON DIOXIDE 28.1 MMOL/L (24-32); WHITE BLOOD COUNT 37.4 X10'3 (4.5-11.0); eGFR 65 ML/MIN
--- NOTE | 2022-01-03 15:43 | NUR ---
Dr. Caputo at bedside, updated on WBC, CXR and overall pt condition. order received to increase fluid removal to 50-100cc/hr. to stop CVVH if pt becomes hypotensive, tachycardic.
[2022-01-03 15:59] LABS: HEMOGLOBIN A1C 6.3 % (4.5-6.2)
[2022-01-03] MEDS: NORepinephrine 8mg/ 250ml NS 250 ML IV SCH (16:30)
--- NOTE | 2022-01-03 17:51 | NUR ---
at about 1720 after repositioning pt, he complained of extreme pain and the CVVH machine began to alarm arterial occlusion. medicated with Dilaudid for pain and precedex gtt increased to 1.5 and attempting repositioning again. it continued to alarm arterial occlusion. whipped topping supervisor attempted to draw back on the arterial side with no blood return. South carpenter apprentice notified and she will be here in an hour. Dr fabian notified. orders received 1. blood cultures 2. cardizem gtt, 3 stop CVVH and restarted when pt stabilized pt continues to be tachycardic bp 197/113 and yelling for pain. when questioning pt where pain is he has no definite place.
[2022-01-03] MEDS: diltiazem-NS 100mg/100ml 100 ML IV SCH (18:00)
--- NOTE | 2022-01-03 19:00 | NUR ---
Patient in room ICU 2042. I have received report from Nii SANCHEZ and had the opportunity to ask questions and assume patient care.
--- NOTE | 2022-01-03 20:30 | NUR ---
Patient RR is in the 40's But o2 sat is 97, medicated patient with dilaudid. Pateint appeared to be painful. Did not resolve high respiratory rate. put patient on bipap. rr down to 28
[2022-01-03] MEDS: insulin glargine (Lantus) pen - multi-dose SQ SCH (21:00)
[2022-01-04] VITALS (32 sets, daily range): BP systolic 70–202; BP diastolic 33–80
[2022-01-04] MEDS: pantoprazole 40MG/NS 100ML BAG 100 ML IV SCH ×5 (01:45→21:53)
[2022-01-04] MEDS: Duosol 4K/3 Ca (w/calcium) 5,000 ML HE SCH ×11 (02:28→21:08)
[2022-01-04] MEDS: HYDROmorphone 1 mg/ml syringe IV PRN (02:36)
[2022-01-04] MEDS: VANCOMYCIN LEVEL IV SCH (03:00)
[2022-01-04] MEDS: insulin regular, human U-100 3ml vial - multi-dose SQ SCH ×3 (03:37→22:07)
[2022-01-04 03:47] LABS: BASOPHILS # (AUTO) 0.1 X10'3 (0-0.2); BASOPHILS % (AUTO) 0.1 % (0-1); EOSINOPHILS % (AUTO) 0 % (0-6); HEMATOCRIT 39.5 % (42.0-52.0); HEMOGLOBIN 12.8 g/dl (14.0-17.9); LYMPHOCYTES # (AUTO) 0.7 X10'3 (1.1-4.8); LYMPHOCYTES % (AUTO) 1.5 % (21-51); MEAN CORPUSCULAR HEMOGLOBIN 29.5 PG (27.0-31.0); MEAN CORPUSCULAR HGB CONC 32.5 g/dL (33.0-36.5); MEAN CORPUSCULAR VOLUME 90.8 FL (78-98); MEAN PLATELET VOLUME 9.2 FL (7.4-10.4); MONOCYTES % (AUTO) 2.2 % (2-12); NEUTROPHILS # (AUTO) 43.6 X10'3 (1.8-7.7); NEUTROPHILS % (AUTO) 96.2 % (42-75); PLATELET COUNT 238 X10'3 (140-440); RED BLOOD COUNT 4.35 X10'6 (4.70-6.10); RED CELL DISTRIBUTION WIDTH 15.3 % (11.5-14.5)
[2022-01-04 04:08] LABS: WHITE BLOOD COUNT 45.4 X10'3 (4.5-11.0)
[2022-01-04 04:10] LABS: ALBUMIN 1.7 G/DL (3.4-5.0); ANION GAP 11 (8-16); BLOOD UREA NITROGEN 50 MG/DL (7-18); BUN/CREATININE RATIO 26.5 (5.4-32.0); CALCIUM 7.4 MG/DL (8.5-10.1); CHLORIDE 106 MMOL/L (99-107); CREATININE 1.89 MG/DL (0.60-1.10); GLUCOSE 214 MG/DL (70-104); MAGNESIUM 2.1 MG/DL (1.5-2.4); PHOSPHORUS 2.7 MG/DL (2.3-4.5); POTASSIUM 3.6 MMOL/L (3.5-5.1); SODIUM 141 MMOL/L (135-145); TOTAL CARBON DIOXIDE 24.4 MMOL/L (24-32); VANCOMYCIN,RANDOM 6.4 UG/ML; eGFR 35 ML/MIN
[2022-01-04 05:38] LABS: TOTAL CELLS COUNTED 100
[2022-01-04 05:42] LABS: PLATELET ESTIMATE NORMAL; TARGET CELLS FEW
[2022-01-04] MEDS ORDERED: VANCOMYCIN 1GM/200ML IVPB 200 ML IV ONE (07:30)
[2022-01-04] MEDS ORDERED: levoFLOXACIN-Levaquin 500mg/D5 100 ML IV ONE (07:45)
[2022-01-04] MEDS: NORepinephrine 8mg/ 250ml NS 250 ML IV SCH ×2 (07:48→16:03)
[2022-01-04] MEDS: nystatin 15 GM powder TP SCH ×2 (08:00→20:35)
[2022-01-04] MEDS: docusate sodium 100mg/10ml UD cup PO SCH ×2 (08:00→20:00)
[2022-01-04] MEDS: lactobacillus rhamnosus 10,000 MMU CELLS/CAPSULE PO SCH ×2 (08:00→20:00)
[2022-01-04] MEDS: zinc oxide ointment 30gm tube TP SCH ×2 (08:00→20:35)
[2022-01-04] MEDS ORDERED: midazolam 1 mg/ML 2ml injection ONE ×2 (08:13→08:14)
[2022-01-04] MEDS: amiodarone/D5 360MG/200ML BAG 200 ML IV SCH ×2 (08:15→11:58)
[2022-01-04] MEDS ORDERED: amiodarone 150mg/dext, iso-os 100 ML IV ONE ×2 (08:15→08:16)
[2022-01-04] MEDS ORDERED: amiodarone/D5 360MG/200ML BAG 200 ML IV ONE (08:16)
[2022-01-04] MEDS: diatr meglu/diatrizoate 30ml oral sol.-(3 dose) bottle PO SCH ×3 (09:00→15:00)
[2022-01-04] MEDS: midazolam 100mg in NS 100ml 100 ML IV SCH (09:00)
[2022-01-04 09:46] LABS: ABG BASE EXCESS -4.5 mmol/L (-2.0-2.0); ABG OXYGEN SATURATION 96.9 % (94-97); ABG PCO2 (T) 42.3 mmHg (35.0-48.0); ABG PO2 (T) 94.8 mmHg (75.0-100.0); FCOHb 0.4 % (0.0-3.9); FMetHb 0.3 % (0.0-1.5); FO2Hb 96.2 % (94-97); PATIENT TEMPERATURE 38.1; RESPIRATORY RATE 20 b/min; TIDAL VOLUME 375 mL; TOTAL HEMOGLOBIN 15.5 G/dl (14.0-18.0)
--- NOTE | 2022-01-04 10:26 | NUR ---
Reassessment: Per EMR pt emergently intubated this morning. Per KUB Corpak resides in the GE junction; TF was started, documented at 50 mL/hr with GRV WNL. LBM 2/2 though per MD note pt with dark stools, pending CT of abdomen and pelvis. Pt with routine bowel care available BID though HS dose held per EMR. Will continue to follow closely and make recommendations as appropriate. Recommendations: 1. Continuous TF per MD using Vital High Protein with 85ml/hr goal to provide 2040 ml volume/day, 2040 kcal, 1714 ml water, and 178 g protein. 2. Additional water flush per hardwood floor layer given pt on CVVH 3. PALB q / 4. Daily scaled weights 5. Consider Phos binder per hardwood floor layer discretion; Phos WNL this AM though high on admit 6. Routine bowel care Addendum: 01/04/22 at [address] Amended: Links added.
[2022-01-04] MEDS: metroNIDAZOLE-Flagyl 500mg/NS 100 ML IV SCH ×2 (10:30→16:03)
[2022-01-04] MEDS: hydrocortisone sod succ/PF 100mg/2ml inj. IV SCH ×2 (10:45→16:03)
[2022-01-04] MEDS: cefepime 2g/NS 100ml ADVANTAGE 100 ML IV SCH ×2 (11:00→20:30)
[2022-01-04] MEDS: micafungin inj 100 MG in normal saline 100ml IV soln 100 ML IV SCH (11:30)
[2022-01-04 11:45] LABS: ALBUMIN 1.6 G/DL (3.4-5.0); ANION GAP 10 (8-16); BLOOD UREA NITROGEN 61 MG/DL (7-18); BUN/CREATININE RATIO 24.7 (5.4-32.0); CHLORIDE 106 MMOL/L (99-107); CREATININE 2.47 MG/DL (0.60-1.10); GLUCOSE 248 MG/DL (70-104); LACTATE DEHYDROGENASE 325 U/L (85-227); PHOSPHORUS 3.5 MG/DL (2.3-4.5); POTASSIUM 3.6 MMOL/L (3.5-5.1); SODIUM 138 MMOL/L (135-145); TOTAL CARBON DIOXIDE 21.9 MMOL/L (24-32); eGFR 25 ML/MIN
[2022-01-04] MEDS: diltiazem-NS 100mg/100ml 100 ML IV SCH (11:54)
[2022-01-04] MEDS ORDERED: albumin (Human) 5% 250ml 250 ML IV ONE (11:57)
[2022-01-04] MEDS ORDERED: vasopressin 40 UNIT in D5W 40ml IV DRIP IV SCH (12:15)
[2022-01-04] MEDS ORDERED: digoxin 250mcg/ml 2ml ampule IV ONE (12:50)
[2022-01-04 14:13] LABS: ABG BASE EXCESS -6.9 mmol/L (-2.0-2.0); ABG HCO3 19.6 mmol/L (22.0-26.0); ABG OXYGEN SATURATION 96.8 % (94-97); ABG PCO2 (T) 45.6 mmHg (35.0-48.0); ABG PO2 (T) 102.6 mmHg (75.0-100.0); FCOHb 0.5 % (0.0-3.9); FMetHb 0.4 % (0.0-1.5); FO2Hb 95.9 % (94-97); PATIENT TEMPERATURE 38.6; RESPIRATORY RATE 20 b/min; TIDAL VOLUME 375 mL; TOTAL HEMOGLOBIN 14.1 G/dl (14.0-18.0)
[2022-01-04] MEDS ORDERED: iohexol 300mg/ml 100ml inj. ONE (14:29)
[2022-01-04 14:42] LABS: LYMPHOCYTES,BODY FLUID 6 %; MONOCYTES,BODY FLUID 6 %; NEUTROPHILS,BODY FLUID 88 %
[2022-01-04 14:43] LABS: BF MESOTHELIAL CELLS MANY; BF RBC COUNT 400 /CU MM; BF WBC COUNT 2475 /CU MM (0-1000); BFAPPEAR HAZY; BFCOLOR YELLOW; BFVOLUME 45 ML
--- NOTE | 2022-01-04 16:56 | NUR ---
Immediately after report primary RN assessed the patient and started Diltiazem drip for HR above 150 per MD order. MD ordered additional Amiodorone drip. Levophed was restarted at higher rate. Emergent intubation was initiated and done at 0930. Central line placement and A line placement done at 1100. Family informed and updated. Patient continue to deteriorate. HR going in and out of VTach. Three shocks at 120, 200 and 200 respectively were delivered, per MD order. No change in heart rhythm. IR called and arrived to bedside for bedside chest tube placement. Once patient was stable, primary RN took the patient to CT. CT showed perforated bowel. MD informed family of options. Family is considering change code status to DNR.
[2022-01-04] MEDS: FENTANYL-0.9 % NACL/PF 100 ML IV PRN ×2 (17:58→22:44)
[2022-01-04] MEDS: heparin 25,000 UNIT/250ml bag 250 ML IV SCH (18:00)
[2022-01-04] MEDS ORDERED: NORepinephrine inj. 32 MG in normal saline 250ml IV soln 218 ML IV SCH (18:50)
[2022-01-04] MEDS: dexmedetomidine/D5W 100mL 100 ML IV SCH (21:52)
[2022-01-04] MEDS: insulin glargine (Lantus) pen - multi-dose SQ SCH (22:08)
[2022-01-05] VITALS (16 sets, daily range): BP systolic 104–148; BP diastolic 40–52
[2022-01-05] MEDS: Duosol 4K/3 Ca (w/calcium) 5,000 ML HE SCH ×4 (00:52→06:28)
[2022-01-05] MEDS: amiodarone/D5 360MG/200ML BAG 200 ML IV SCH ×3 (01:22→08:45)
[2022-01-05] MEDS: pantoprazole 40MG/NS 100ML BAG 100 ML IV SCH ×2 (01:22→06:00)
[2022-01-05] MEDS: metroNIDAZOLE-Flagyl 500mg/NS 100 ML IV SCH ×2 (01:22→08:36)
[2022-01-05] MEDS: hydrocortisone sod succ/PF 100mg/2ml inj. IV SCH ×2 (01:29→08:36)
[2022-01-05] MEDS: midazolam 100mg in NS 100ml 100 ML IV SCH (02:49)
[2022-01-05] MEDS: insulin regular, human U-100 3ml vial - multi-dose SQ SCH (02:55)
[2022-01-05] MEDS: VANCOMYCIN LEVEL IV SCH (03:00)
[2022-01-05] MEDS: diltiazem-NS 100mg/100ml 100 ML IV SCH (03:17)
[2022-01-05 03:25] LABS: BASOPHILS # (AUTO) 0.1 X10'3 (0-0.2); BASOPHILS % (AUTO) 0.2 % (0-1); EOSINOPHILS % (AUTO) 0 % (0-6); HEMATOCRIT 40.8 % (42.0-52.0); HEMOGLOBIN 13.3 g/dl (14.0-17.9); LYMPHOCYTES % (AUTO) 2.3 % (21-51); MEAN CORPUSCULAR HEMOGLOBIN 29.2 PG (27.0-31.0); MEAN CORPUSCULAR HGB CONC 32.5 g/dL (33.0-36.5); MEAN CORPUSCULAR VOLUME 89.7 FL (78-98); MONOCYTES # (AUTO) 1.7 X10'3 (0-0.9); MONOCYTES % (AUTO) 3.8 % (2-12); NEUTROPHILS # (AUTO) 43.1 X10'3 (1.8-7.7); NEUTROPHILS % (AUTO) 93.7 % (42-75); PLATELET COUNT 233 X10'3 (140-440); RED BLOOD COUNT 4.55 X10'6 (4.70-6.10)
[2022-01-05 03:30] LABS: ABG BASE EXCESS -11.5 mmol/L (-2.0-2.0); ABG HCO3 14.5 mmol/L (22.0-26.0); ABG OXYGEN SATURATION 96.1 % (94-97); ABG PCO2 (T) 34.4 mmHg (35.0-48.0); ABG PO2 (T) 97.5 mmHg (75.0-100.0); FCOHb 0.4 % (0.0-3.9); FMetHb 0.4 % (0.0-1.5); FO2Hb 95.3 % (94-97); PATIENT TEMPERATURE 37.6; PEEP 8 cm H2O; RESPIRATORY RATE 20 b/min; TIDAL VOLUME 425 mL; TOTAL HEMOGLOBIN 14.3 G/dl (14.0-18.0)
[2022-01-05 03:40] LABS: ALANINE AMINOTRANSFERASE 30 U/L (12-78); ALBUMIN 1.4 G/DL (3.4-5.0); ALBUMIN/GLOBULIN RATIO 0.5 (1.1-1.5); ALKALINE PHOSPHATASE 100 IU/L (46-116); ANION GAP 15 (8-16); ASPARTATE AMINO TRANSFERASE 23 U/L (10-37); BILIRUBIN,TOTAL 0.4 MG/DL (0.1-1.0); BLOOD UREA NITROGEN 74 MG/DL (7-18); CALCIUM 7.3 MG/DL (8.5-10.1); CHLORIDE 108 MMOL/L (99-107); CREATININE 3.08 MG/DL (0.60-1.10); GLUCOSE 181 MG/DL (70-104); MAGNESIUM 2.1 MG/DL (1.5-2.4); PHOSPHORUS 4.3 MG/DL (2.3-4.5); POTASSIUM 3.8 MMOL/L (3.5-5.1); SODIUM 143 MMOL/L (135-145); TOTAL CARBON DIOXIDE 19.6 MMOL/L (24-32); TOTAL PROTEIN 4.2 G/DL (6.4-8.2); eGFR 20 ML/MIN
[2022-01-05] MEDS: FENTANYL-0.9 % NACL/PF 100 ML IV PRN ×2 (03:52→08:50)
[2022-01-05] MEDS ORDERED: propofol 1000mg/100ml bottle 100 ML IV SCH (05:55)
[2022-01-05 06:27] LABS: TOTAL CELLS COUNTED 100
[2022-01-05 06:30] LABS: ACANTHOCYTES 2+; BURR CELLS 2+; ELLIPTOCYTES FEW; PLATELET ESTIMATE NORMAL; TARGET CELLS FEW; TEAR DROP CELLS FEW
[2022-01-05] MEDS: dexmedetomidine/D5W 100mL 100 ML IV SCH (07:01)
[2022-01-05] MEDS: docusate sodium 100mg/10ml UD cup PO SCH (08:00)
[2022-01-05] MEDS: lactobacillus rhamnosus 10,000 MMU CELLS/CAPSULE PO SCH (08:00)
--- NOTE | 2022-01-05 08:00 | NUR ---
Dr. Caputo on phone with son, Patients son aPco Beyer would like to make his father comfort care. I Carley Dodson RN second this phone call a a witness to change in code status. He would like for the friend Angela to see him before life sustaining measures are withdrawn
[2022-01-05] MEDS: nystatin 15 GM powder TP SCH (08:36)
[2022-01-05] MEDS: zinc oxide ointment 30gm tube TP SCH (08:36)
[2022-01-05] MEDS: micafungin inj 100 MG in normal saline 100ml IV soln 100 ML IV SCH (08:36)
[2022-01-05] MEDS: cefepime 2g/NS 100ml ADVANTAGE 100 ML IV SCH (08:36)
[2022-01-05] MEDS ORDERED: adenosine 3mg/ml 2ml vial IV ONE (09:00)
[2022-01-05] MEDS ORDERED: VANCOMYCIN 1GM/200ML IVPB 200 ML IV ONE (09:40)
--- NOTE | 2022-01-05 10:09 | NUR ---
Patients friend gilberto called and stated that she said her goodbyes yesterday and that she would not come in to say goodbye again today
[2022-01-05] MEDS ORDERED: LORazepam 2 mg/ml vial IV PRN (10:35)
[2022-01-05] MEDS ORDERED: morphine 10mg/ml inj. IV PRN (10:35)
--- NOTE | 2022-01-05 12:37 | NUR ---
1125 patient extubated to comfort care per Dr. Caputo's order 1141 patient asystole absent of heart and breath sounds 1150 donor network called spoke to Baudilio haynes ref # [id number] patient excluded from donation 1204 called patients son to notify him of his passing [phone] spoke to son Paco Beyer requested [facility] per patients verbalized request prior to decline [facility]20 [facility] product picker of patient
--- NOTE | 2022-01-05 12:39 | NUR ---
RN IS TO DOCUMENT YES TO ALL APPLICABLE AREAS Pronouncement of : 1. Time Physician Notified: 1240 2. Date of : 01/05/2022 3. Time of : 11:41 4. DNR/Withdraw life support documented: yes 5. Monitor strip has been placed on chart:yes 6. Assessment process is of one-minute duration and includes following criteria: a) Patient is unresponsive to all stimuli: yes b) Pupils fixed and non-reactive:yes c) Auscultation of precordium reveals absence of heart tones:yes d) Auscultation of lungs reveals absence of breath sounds:yes e) Absence of blood pressure / all vital signs:yes f) QRS complexes are not present on monitor / EKG strip:yes g) Pacer spikes without capture:yes 4. Comments: patient absent of auscultated breath and heart tones
--- NOTE | 2022-01-05 13:24 | NUR ---
Patient and his belongings picked up by kimberly ortiz
[2022-01-06] MEDS ORDERED: levoFLOXACIN-Levaquin 500mg/D5 100 ML IV SCH (08:00)
== END 2022-01-05 11:41 | DRG 871 ==
LOC: ER 13:05 → ED HOLD 17:16 → EDBEDREQ 21:35 → PCU 3S 23:10 → ICU 2S 12-31 22:51
PROVIDERS: ADMIT Family Medicine; ATTEND Family Medicine
PROC: 5A09457 Assistance with Respiratory Ventilation, 24-96 Consecutive Hours, Continuous Positive Airway Pressure (ICD-10-PCS; 2022-01-01)
PROC: 5A1D90Z Performance of Urinary Filtration, Continuous, Greater than 18 hours Per Day (ICD-10-PCS; 2022-01-01)
PROC: 06HY33Z Insertion of Infusion Device into Lower Vein, Percutaneous Approach (ICD-10-PCS; 2022-01-01)
PROC: 02HV33Z Insertion of Infusion Device into Superior Vena Cava, Percutaneous Approach (ICD-10-PCS; 2022-01-01)
PROC: 5A1D70Z Performance of Urinary Filtration, Intermittent, Less than 6 Hours Per Day (ICD-10-PCS; 2022-01-01)
PROC: 5A1D90Z Performance of Urinary Filtration, Continuous, Greater than 18 hours Per Day (ICD-10-PCS; 2022-01-02)
PROC: 5A1D70Z Performance of Urinary Filtration, Intermittent, Less than 6 Hours Per Day (ICD-10-PCS; 2022-01-02)
PROC: 5A09357 Assistance with Respiratory Ventilation, Less than 24 Consecutive Hours, Continuous Positive Airway Pressure (ICD-10-PCS; 2022-01-03)
PROC: 5A1D90Z Performance of Urinary Filtration, Continuous, Greater than 18 hours Per Day (ICD-10-PCS; 2022-01-03)
PROC: 5A1945Z Respiratory Ventilation, 24-96 Consecutive Hours (ICD-10-PCS; principal; 2022-01-04)
PROC: 0BH17EZ Insertion of Endotracheal Airway into Trachea, Via Natural or Artificial Opening (ICD-10-PCS; 2022-01-04)
PROC: 5A09357 Assistance with Respiratory Ventilation, Less than 24 Consecutive Hours, Continuous Positive Airway Pressure (ICD-10-PCS; 2022-01-04)
PROC: BW251ZZ Computerized Tomography (CT Scan) of Chest, Abdomen and Pelvis using Low Osmolar Contrast (ICD-10-PCS; 2022-01-04)
PROC: 0W9B30Z Drainage of Left Pleural Cavity with Drainage Device, Percutaneous Approach (ICD-10-PCS; 2022-01-04)
PROC: 5A2204Z Restoration of Cardiac Rhythm, Single (ICD-10-PCS; 2022-01-04)
PROC: 06HY33Z Insertion of Infusion Device into Lower Vein, Percutaneous Approach (ICD-10-PCS; 2022-01-04)
DX: A41.9 Sepsis, unspecified organism (principal); J18.9 Pneumonia, unspecified organism; J96.22 Acute and chronic respiratory failure with hypercapnia; G93.41 Metabolic encephalopathy; K63.1 Perforation of intestine (nontraumatic); N17.0 Acute kidney failure with tubular necrosis; R65.21 Severe sepsis with septic shock; I13.0 Hypertensive heart and chronic kidney disease with heart failure and stage 1 through stage 4 chronic kidney disease, or unspecified chronic kidney disease; I47.1 Supraventricular tachycardia; I50.30 Unspecified diastolic (congestive) heart failure; L03.314 Cellulitis of groin; K55.9 Vascular disorder of intestine, unspecified; J91.8 Pleural effusion in other conditions classified elsewhere; E86.0 Dehydration; Z20.822 Contact with and (suspected) exposure to COVID-19; D64.9 Anemia, unspecified; E66.9 Obesity, unspecified; F32.A Depression, unspecified; I49.5 Sick sinus syndrome; E87.5 Hyperkalemia; I27.20 Pulmonary hypertension, unspecified; I48.91 Unspecified atrial fibrillation; K57.90 Diverticulosis of intestine, part unspecified, without perforation or abscess without bleeding; L89.890 Pressure ulcer of other site, unstageable; N18.30 Chronic kidney disease, stage 3 unspecified; R29.6 Repeated falls; Z51.5 Encounter for palliative care; Z95.0 Presence of cardiac pacemaker; Z99.2 Dependence on renal dialysis; Z68.37 Body mass index [BMI] 37.0-37.9, adult; Z79.899 Other long term (current) drug therapy
CPT/HCPCS: 32557; 36415; 36600; 70450; 71045; 71250; 71260; 74018; 74176; 74177; 76770; 80048; 80053; 80061; 80069; 80202; 81001; 82272; 82330; 82803; 82948; 83036; 83605; 83615; 83690; 83735; 83880; 84100; 84134; 84145; 84443; 84484; 84550; 85007; 85018; 85025; 85610; 85730; 87040; 87070; 87075; 87076; 87077; 87081; 87088; 87102; 87185; 87186; 87635; 89051; 90935; 92508; 92616; 93005; 93306; 94002; 94003; 94640; 94660; 94760; 94799; 96365; 99285; A7015; C9113; C9803; E1594; G0378; J0131; J0153; J0282; J0456; J0610; J0692; J0696; J1170; J1644; J1720; J1815; J1940; J1956; J2248; J2250; J2405; J2543; J2765; J3010; J3370; J3480; J3490; J7030; J7040; J7050; P9045; Q9963; Q9967